=== PATIENT | female | born 1940 | race Caucasian/White ===

== ENCOUNTER 2019-05-28 20:40 | Inpatient (IN) | payer MEDICARE, OTHER ==
[2019-05-28] MEDS ORDERED: MORPHINE SULFATE 2 MG/ML SYRINGE IVP STA (21:02)
[2019-05-28 21:30] LABS: Basophils % (A) 0 %; Eosinophils # (A) 0.2 k/uL (0-0.7); Eosinophils % (A) 1 %; HGB 14.8 gm/dL (11.4-16.0); Lymphocytes # (A) 1.1 k/uL (1.0-4.8); Lymphocytes % (A) 6 %; MCH 29.8 pg (25.0-35.0); MCHC 32.8 g/dL (31.0-37.0); MCV 91.1 fL (80.0-100.0); Mean Platelet Volume 7.9; Monocytes # (A) 0.7 k/uL (0-1.0); Monocytes % (A) 5 %; Neutrophils # (A) 14.5 k/uL (1.3-7.7); Neutrophils % (A) 87 %; Platelet Count 191 k/uL (150-450); RBC 4.94 m/uL (3.80-5.40); RDW 14.7 % (11.5-15.5); WBC 16.7 k/uL (3.8-10.6)
[2019-05-28 21:34] LABS: ALT 19 U/L (9-52); AST 25 U/L (14-36); African American GFR (CKD) >90 (>60 ml/min/1.73 sqM); Albumin 3.7 g/dL (3.5-5.0); Alkaline Phosphatase 82 U/L (38-126); Anion Gap 11 mmol/L; Blood Urea Nitrogen 15 mg/dL (7-17); Carbon Dioxide 20 mmol/L (22-30); Chloride 106 mmol/L (98-107); Glucose 143 mg/dL (74-99); Potassium 3.6 mmol/L (3.5-5.1); Sodium 137 mmol/L (137-145); Total Bilirubin 1.8 mg/dL (0.2-1.3); Total Protein 6.7 g/dL (6.3-8.2)
[2019-05-28 21:43] LABS: Partial Thromboplastin Time 24.8 sec (22.0-30.0)
--- NOTE | 2019-05-28 22:19 | US ---
EXAM: US Abdomen Limited, Right Upper Quadrant CLINICAL HISTORY: Right upper quadrant pain, history of gallstones TECHNIQUE: Real-time ultrasound of the right upper quadrant with image documentation. COMPARISON: No relevant prior studies available. FINDINGS: Liver: Nodular atrophic heterogeneous liver. No focal lesions. Gallbladder: Distended gallbladder with mildly prominent wall measuring 4 mm. Possible gallbladder sludge. Sonographic Plata sign is positive. No shadowing gallstones. Common bile duct: Prominent common bile duct measures 9 mm. Pancreas: Pancreas not well-seen due to bowel gas. Right kidney: Unremarkable. No stones. No hydronephrosis. IMPRESSION: Distended gallbladder with mildly prominent wall measuring 4 mm. Possible gallbladder sludge. Sonographic Plata sign is positive. Prominent common bile duct measuring up to 9 mm. Nuclear medicine HIDA scan may be considered for further evaluation.
[2019-05-28] MEDS: DILTIAZEM 125 MG in SODIUM CHLORIDE 0.9% 100 ML IV SCH (23:03)
[2019-05-29] MEDS ORDERED: HEPARIN SODIUM,PORCINE 5,000 UNIT/ML 1 ML VIAL IV ONE (00:19)
[2019-05-29] MEDS ORDERED: HEPARIN SODIUM,PORCINE 5,000 UNIT/ML 1 ML VIAL IV PRN (00:19)
--- NOTE | 2019-05-29 00:19 | ED ---
General Adult HPI - General Chief complaint: Chest Pain Stated complaint: Afib Time Seen by Provider: 05/28/19 20:50 Source: patient, EMS Mode of arrival: EMS Limitations: no limitations - History of Present Illness Initial comments: The patient is an 79-year-old female who presents to the emergency department as a transfer from [facility]. The history is obtained from the transferring physician as well as the patient. He reported that the patient has been in bed for the past 2 days. She reports that she started feeling generally weak with a right upper quadrant abdominal pain 2 days ago. She was unable to get up out of bed and take her medications. Her son did come to check on her and she was found covered in her own urine. EMS was called and brought the patient into the [place] ED. Patient has a history of A. fib and she was found to have a rapid ventricular rate in the 170s. She was also mildly hypotensive. She is supposed to be on Eliquis and metoprolol for her A. fib however has not taken her medications in 2 days. The patient was found to have a leukocytosis of 15,000. She was positive for urinary tract infection. She had an elevated troponin unremarkable at 0.7. They also performed a CT of her chest abdomen pelvis which demonstrated possible cholecystitis. They gave her dose of Rocephin and transferred her for higher level of care. The patient reports a similar history. She used to complaint of a 3 out of 10 right upper quadrant abdominal pain. She reports a history of billiary duct dilation by [facility] several years ago. Admits to associated nausea without vomiting. Denies any changes in her bowel or bladder habits. Denies any chest pain or shortness of breath. There are no other alleviating, precipitating or modifying factors - Related Data Home Medications Medication Instructions Recorded Confirmed Apixaban [Eliquis] 5 mg PO BID 05/28/19 05/28/19 Atorvastatin [Lipitor] 20 mg PO DAILY 05/28/19 05/28/19 Esomeprazole Magnesium [NexIUM] 40 mg PO DAILY 05/28/19 05/28/19 Metoprolol Succinate [Toprol XL] 25 mg PO DAILY 05/28/19 05/28/19 Ranitidine HCl [Zantac] 300 mg PO HS 05/28/19 05/28/19 Allergies Allergy/AdvReac Type Severity Reaction Status Date / Time No Known Allergies Allergy Unverified 05/28/19 21:15 Review of Systems ROS Statement: Those systems with pertinent positive or pertinent negative responses have been documented in the HPI. ROS Other: All systems not noted in ROS Statement are negative. Past Medical History Past Medical History: Atrial Fibrillation, Coronary Artery Disease (CAD), Cancer, COPD, Myocardial Infarction ([place]), Pneumonia Additional Past Medical History / Comment(s): basal cell cancer History of Any Multi-Drug Resistant Organisms: None Reported Past Surgical History: Adenoidectomy, Appendectomy, Heart Catheterization With Stent, Hernia Repair, Hysterectomy, Tonsillectomy Additional Past Surgical History / Comment(s): gall stones removed with biliary stent placement. Past Psychological History: No Psychological Hx Reported Smoking Status: Former smoker Past Alcohol Use History: None Reported Past Drug Use History: None Reported - Past Family History Father Additional Family Medical History / Comment(s): brain tumor Mother Family Medical History: Pneumonia Additional Family Medical History / Comment(s): alzheimers General Exam Limitations: no limitations General appearance: alert, in no apparent distress Head exam: Present: atraumatic, normocephalic Eye exam: Present: normal appearance, PERRL, EOMI ENT exam: Present: mucous membranes dry, TM's normal bilaterally, normal external ear exam Neck exam: Present: normal inspection. Absent: tenderness, meningismus, lymphadenopathy, thyromegaly Respiratory exam: Present: normal lung sounds bilaterally. Absent: wheezes, rales, rhonchi, stridor, accessory muscle use Cardiovascular Exam: Present: tachycardia, irregular rhythm, normal heart sounds GI/Abdominal exam: Present: soft, tenderness (RUQ). Absent: distended, guarding, rebound, rigid, pulsatile mass Extremities exam: Present: normal inspection, full ROM, normal capillary refill. Absent: pedal edema Back exam: Present: normal inspection, full ROM. Absent: tenderness Neurological exam: Present: alert, oriented X3, CN II-XII intact Psychiatric exam: Present: normal affect Skin exam: Present: warm, dry, intact Course Vital Signs 05/28/19 05/28/19 05/29/19 20:44 22:31 01:12 Temperature 99.5 F Pulse Rate 115 H 133 H 106 H Pulse Rate [ Occupational Health Manager ] Respiratory 18 16 16 Rate Blood Pressure 122/94 114/87 107/59 Blood Pressure [Left Arm Supine] O2 Sat by Pulse 96 96 95 Oximetry 05/29/19 02:28 Temperature 98.3 F Pulse Rate Pulse Rate [ 115 H Occupational Health Manager ] Respiratory 18 Rate Blood Pressure Blood Pressure 127/73 [Left Arm Supine] O2 Sat by Pulse 97 Oximetry EKG Findings - EKG Comments: EKG Findings:: EKG demonstrates atrial fibrillation with a rapid ventricular response of 127. QRS 78. QTC 479. There is mild ST depression in leads V2 through V6. Also in lead 2. There are no acute ST segment elevations. Medical Decision Making - Medical Decision Making Upon arrival the patient is placed into room 1. She is hooked up to continuous pulse ox and cardiac monitoring. The patient does arrive on a Cardizem drip. She is continued on the drip at our facility. I did repeat an EKG. Laboratory studies were conducted at our facility. She is sent her for a chest x-ray as well as an ultrasound of her gallbladder. She is given 2 mg of morphine for pain control. Upon return of the results they are remarkable for an elevated troponin of 0.5. The patient also has a leukocytosis. She previously received Rocephin and therefore I do not obtain blood cultures. I did review the ultrasound report which demonstrated possible acute cholecystitis with a thickened gallbladder wall at 4 mm. She also has a dilated common bile duct of 9 mm. I did provide the patient with a dose of Zosyn as I am concerned for possible acute cholecystitis. I also placed the patient on a heparin drip as she has missed her last 2 doses of Eliquis and because of her elevated trop. I do not restart Eliquis as I anticipate the patient may need surgery. She was given a dose of zosyn to cover for possible acute cholecystitis. I did recommend admission to the hospital for which the patient did agree. I did call discuss case with Dr. spann who did accept admission of the patient. I will place GI, surgery and cardiology on consult. The patient was reevaluated and had improvement in her pain. Her heart rate did improve as well as her blood pressure. Abdomen remained soft without peritoneal signs. The patient was then transported to the floor in stable condition - Differential Diagnosis afib with RVR, acute uti, acute cholecystitis, dehydration - Lab Data Result diagrams: 06/03/19 07:14 06/03/19 07:14 Lab Results 05/28/19 05/28/19 05/28/19 Range/Units 21:15 21:15 21:15 WBC 16.7 H (3.8-10.6) k/uL RBC 4.94 (3.80-5.40) m/uL Hgb 14.8 (11.4-16.0) gm/dL Hct 45.0 (34.0-46.0) % MCV 91.1 (80.0-100.0) fL MCH 29.8 (25.0-35.0) pg MCHC 32.8 (31.0-37.0) g/dL RDW 14.7 (11.5-15.5) % Plt Count 191 (150-450) k/uL Neutrophils % 87 % Lymphocytes % 6 % Monocytes % 5 % Eosinophils % 1 % Basophils % 0 % Neutrophils # 14.5 H (1.3-7.7) k/uL Lymphocytes # 1.1 (1.0-4.8) k/uL Monocytes # 0.7 (0-1.0) k/uL Eosinophils # 0.2 (0-0.7) k/uL Basophils # 0.0 (0-0.2) k/uL PT (9.0-12.0) sec INR (<1.2) APTT (22.0-30.0) sec Sodium 137 (137-145) mmol/L Potassium 3.6 (3.5-5.1) mmol/L Chloride 106 (98-107) mmol/L Carbon Dioxide 20 L (22-30) mmol/L Anion Gap 11 mmol/L BUN 15 (7-17) mg/dL Creatinine 0.57 (0.52-1.04) mg/dL Est GFR (CKD-EPI)AfAm >90 (>60 ml/min/1.73 sqM) Est GFR (CKD-EPI)NonAf 87 (>60 ml/min/1.73 sqM) Glucose 143 H (74-99) mg/dL Plasma Lactic Acid Kike 2.0 (0.7-2.0) mmol/L Calcium 9.0 (8.4-10.2) mg/dL Total Bilirubin 1.8 H (0.2-1.3) mg/dL AST 25 (14-36) U/L ALT 19 (9-52) U/L Alkaline Phosphatase 82 (38-126) U/L Troponin I (0.000-0.034) ng/mL Total Protein 6.7 (6.3-8.2) g/dL Albumin 3.7 (3.5-5.0) g/dL 05/28/19 05/28/19 Range/Units 21:15 21:15 WBC (3.8-10.6) k/uL RBC (3.80-5.40) m/uL Hgb (11.4-16.0) gm/dL Hct (34.0-46.0) % MCV (80.0-100.0) fL MCH (25.0-35.0) pg MCHC (31.0-37.0) g/dL RDW (11.5-15.5) % Plt Count (150-450) k/uL Neutrophils % % Lymphocytes % % Monocytes % % Eosinophils % % Basophils % % Neutrophils # (1.3-7.7) k/uL Lymphocytes # (1.0-4.8) k/uL Monocytes # (0-1.0) k/uL Eosinophils # (0-0.7) k/uL Basophils # (0-0.2) k/uL PT 11.0 (9.0-12.0) sec INR 1.0 (<1.2) APTT 24.8 (22.0-30.0) sec Sodium (137-145) mmol/L Potassium (3.5-5.1) mmol/L Chloride (98-107) mmol/L Carbon Dioxide (22-30) mmol/L Anion Gap mmol/L BUN (7-17) mg/dL Creatinine (0.52-1.04) mg/dL Est GFR (CKD-EPI)AfAm (>60 ml/min/1.73 sqM) Est GFR (CKD-EPI)NonAf (>60 ml/min/1.73 sqM) Glucose (74-99) mg/dL Plasma Lactic Acid Kike (0.7-2.0) mmol/L Calcium (8.4-10.2) mg/dL Total Bilirubin (0.2-1.3) mg/dL AST (14-36) U/L ALT (9-52) U/L Alkaline Phosphatase (38-126) U/L Troponin I 0.522 H* (0.000-0.034) ng/mL Total Protein (6.3-8.2) g/dL Albumin (3.5-5.0) g/dL Critical Care Time Critical Care Time: Yes Total Critical Care Time: 35 (mins) Critical Care Time: 35 mins Disposition Clinical Impression: Atrial fibrillation with RVR, Acute urinary tract infection, Acute cholecystitis, NSTEMI (non-ST elevated myocardial infarction) Disposition: ADMITTED IP TO THIS [facility] Condition: Serious Is patient prescribed a controlled substance at d/c from ED?: No Decision to Admit Reason: Admit from EC Decision Date: 05/29/19 Decision Time: 00:19
[2019-05-29] MEDS ORDERED: NALOXONE 0.4 MG/ML 1 ML VIAL IV PRN (00:20)
--- NOTE | 2019-05-29 00:33 | XR ---
EXAM: XR Chest, 2 Views CLINICAL HISTORY: abdominal pain TECHNIQUE: Frontal and lateral views of the chest. COMPARISON: CT 05/28/2019 FINDINGS: Lungs: Bilateral pulmonary hyperinflation. No consolidation. Pleural space: Unremarkable. No pneumothorax. Heart: Borderline sized cardiomediastinal silhouette. Mediastinum: See above. Bones/joints: No acute osseous abnormality. Tubes, lines and devices: Telemetry leads overlie the patient. IMPRESSION: No acute cardiopulmonary process.
[2019-05-29] MEDS: HEPARIN SOD,PORK IN 0.45% NACL 25,000 UNIT in 0.45% NACL 1 250ML.BAG IV SCH ×2 (00:56→23:37)
[2019-05-29] MEDS: PIPERACILLIN-TAZOBACTAM 3.375 GM in SODIUM CHLORIDE 0.9% 100 ML IVPB SCH ×4 (01:00→23:30)
[2019-05-29] MEDS: SODIUM CHLORIDE 0.9% 1,000 ML IV SCH ×2 (01:09→14:44)
[2019-05-29 08:00] LABS: Anisocytosis Slight; Basophils % (A) 0 %; Eosinophils # (A) 0.1 k/uL (0-0.7); Eosinophils % (A) 0 %; HCT 41.9 % (34.0-46.0); HGB 13.7 gm/dL (11.4-16.0); Lymphocytes # (A) 1.5 k/uL (1.0-4.8); Lymphocytes % (A) 10 %; MCH 29.6 pg (25.0-35.0); MCHC 32.8 g/dL (31.0-37.0); MCV 90.3 fL (80.0-100.0); Mean Platelet Volume 9.1; Monocytes # (A) 0.9 k/uL (0-1.0); Monocytes % (A) 6 %; Neutrophils # (A) 11.9 k/uL (1.3-7.7); Neutrophils % (A) 82 %; Platelet Count 194 k/uL (150-450); RBC 4.64 m/uL (3.80-5.40); RDW 16.1 % (11.5-15.5); WBC 14.6 k/uL (3.8-10.6)
[2019-05-29 08:05] LABS: ALT 17 U/L (9-52); AST 22 U/L (14-36); African American GFR (CKD) >90 (>60 ml/min/1.73 sqM); Albumin 3.2 g/dL (3.5-5.0); Alkaline Phosphatase 73 U/L (38-126); Anion Gap 9 mmol/L; Blood Urea Nitrogen 18 mg/dL (7-17); Calcium 8.7 mg/dL (8.4-10.2); Carbon Dioxide 22 mmol/L (22-30); Chloride 107 mmol/L (98-107); Glucose 119 mg/dL (74-99); Potassium 3.4 mmol/L (3.5-5.1); Sodium 138 mmol/L (137-145); Total Bilirubin 1.8 mg/dL (0.2-1.3)
--- NOTE | 2019-05-29 09:17 | P.CRDCN ---
History of Present Illness Consult date: 05/29/19 Requesting physician: Carlton E Taina Reason for Consult (text): Afib w/RVR, NSTEMI Chief complaint: RUQ pain, nausea, vomiting History of present illness: This is a pleasant 79-year-old female patient with history of hypertension, hyperlipidemia, prior IA with symptoms of sudden onset diaphoresis, nausea, vomiting and weakness with stenting done in [place], [place] in October 2016, chronic atrial fibrillation, anticoagulated on Eliquis, has not followed with a Health Care Recruiter since around June 2017, and prior gall stone removal and biliary duct dilation at [facility] in the past. Initially presented to [facility] with a 2 day history of right upper quadrant pain as well as nausea, vomiting and weakness. Since she woke up Saturday night with these symptoms and they were ongoing for 2 days. She had apparently been unable to get out of bed and her son came to check on her and found her covering her own urine. She's been unable to take any of her medications for 2 days. Upon arrival she was found to be in atrial fibrillation with rapid ventricular response with a heart rate of around 170 and was subsequently transferred here. She's been initiated on Cardizem drip as well as heparin drip. She is found to be positive for UTI and has an elevated white blood cell count of 16,000. Computed tomography scan of the abdomen and chest and pelvis showed possible cholecystitis. Ultrasound of the abdomen did show distended gallbladder with mildly prominent wall measuring 4 mm with possible gallbladder sludge and prominent common bile duct measuring up to 9 mm. Surgery is in place in consult. Patient was incidentally found to have elevated troponins of 0.74, 0.52 and 0.36. Heart rate is better controlled in the 90s. Upon examination, patient is resting comfortable in bed. She has no current complaints of nausea or vomiting but continues to have significant right upper quadrant discomfort. She verbalizes that the symptoms she had this admission are quite different compared to what she experienced with her IA in 2017 as she did not have diaphoresis and her weakness was not sudden in onset. She's had no recent complaints of chest discomfort, diaphoresis, shortness of breath, orthopnea, PND, dizziness, lightheadedness or syncope. Past Medical History Past Medical History: Atrial Fibrillation, Coronary Artery Disease (CAD), Cancer, COPD, Myocardial Infarction ([place]), Pneumonia Additional Past Medical History / Comment(s): basal cell cancer Last Myocardial Infarction Date:: 10/2016 History of Any Multi-Drug Resistant Organisms: None Reported Past Surgical History: Adenoidectomy, Appendectomy, Heart Catheterization With Stent, Hernia Repair, Hysterectomy, Tonsillectomy Additional Past Surgical History / Comment(s): gall stones removed with biliary stent placement. 2 heart stents Date of Last Stent Placement:: 10/2016 Smoking Status: Former smoker - Past Family History Father Additional Family Medical History / Comment(s): brain tumor Mother Family Medical History: Pneumonia Additional Family Medical History / Comment(s): alzheimers Medications and Allergies Home Medications Medication Instructions Recorded Confirmed Type Apixaban [Eliquis] 5 mg PO BID 05/28/19 05/28/19 History Atorvastatin [Lipitor] 20 mg PO DAILY 05/28/19 05/28/19 History Esomeprazole Magnesium [NexIUM] 40 mg PO DAILY 05/28/19 05/28/19 History Metoprolol Succinate [Toprol XL] 25 mg PO DAILY 05/28/19 05/28/19 History Ranitidine HCl [Zantac] 300 mg PO HS 05/28/19 05/28/19 History Allergies Allergy/AdvReac Type Severity Reaction Status Date / Time No Known Allergies Allergy Unverified 05/28/19 21:15 Physical Exam Vitals: Vital Signs Temp Pulse Pulse Resp BP BP Pulse Ox 05/29/19 04:00 98.2 F 107 H 18 110/58 95 05/29/19 03:28 115 H 18 05/29/19 02:28 98.3 F 115 H 18 127/73 97 05/29/19 01:12 106 H 16 107/59 95 05/28/19 22:31 133 H 16 114/87 96 05/28/19 20:44 99.5 F 115 H 18 122/94 96 Intake and Output 05/28/19 05/29/19 05/29/19 22:59 06:59 14:59 Intake Total 400 Balance 400 Intake: Intake, IV Titration 400 Amount Piperacillin-Tazobactam 3 100 .375 gm In Sodium Chloride 0.9% 100 ml @ 25 mls/hr IVPB Q8H [facility] Rx#: [id number] Sodium Chloride 0.9% 1, 300 000 ml @ 75 mls/hr IV . [id number] [facility] Rx#:[id number] Other: Voiding Method Bedpan # Voids 2 Weight 62.596 kg 66 kg PHYSICAL EXAMINATION: HEENT: Head is atraumatic, normocephalic. Pupils equal, round. Neck is supple. There is no elevated jugular venous pressure. No carotid bruit. HEART EXAMINATION: Heart sounds irregularly irregular, S1 and S2 with a soft systolic murmur. CHEST EXAMINATION: Lungs are clear to auscultation and precussion. No chest wall tenderness is noted on palpation or with deep breathing. ABDOMEN: Soft, significant right upper quadrant tenderness noted. Bowel sounds are heard. No organomegaly noted. EXTREMITIES: 2+ peripheral pulses with no evidence of peripheral edema and no calf tenderness noted. NEUROLOGIC patient is awake, alert and oriented x3. . Results 05/30/19 05:42 05/30/19 05:42 Cardiac Enzymes 05/28/19 05/28/19 05/29/19 Range/Units 21:15 21:15 04:02 AST 25 (14-36) U/L Troponin I 0.522 H* 0.360 H* (0.000-0.034) ng/mL 05/29/19 Range/Units 06:58 AST 22 (14-36) U/L Troponin I (0.000-0.034) ng/mL Coagulation 05/28/19 05/29/19 Range/Units 21:15 06:58 PT 11.0 (9.0-12.0) sec APTT 24.8 39.7 H (22.0-30.0) sec CBC 05/28/19 05/29/19 Range/Units 21:15 06:58 WBC 16.7 H 14.6 H (3.8-10.6) k/uL RBC 4.94 4.64 (3.80-5.40) m/uL Hgb 14.8 13.7 (11.4-16.0) gm/dL Hct 45.0 41.9 (34.0-46.0) % Plt Count 191 194 (150-450) k/uL Comprehensive Metabolic Panel 05/28/19 05/29/19 Range/Units 21:15 06:58 Sodium 137 138 (137-145) mmol/L Potassium 3.6 3.4 L (3.5-5.1) mmol/L Chloride 106 107 (98-107) mmol/L Carbon Dioxide 20 L 22 (22-30) mmol/L BUN 15 18 H (7-17) mg/dL Creatinine 0.57 0.68 (0.52-1.04) mg/dL Glucose 143 H 119 H (74-99) mg/dL Calcium 9.0 8.7 (8.4-10.2) mg/dL AST 25 22 (14-36) U/L ALT 19 17 (9-52) U/L Alkaline Phosphatase 82 73 (38-126) U/L Total Protein 6.7 6.0 L (6.3-8.2) g/dL Albumin 3.7 3.2 L (3.5-5.0) g/dL Current Medications Generic Name Dose Route Start Last Admin Trade Name Freq PRN Reason Stop Dose Admin Atorvastatin Calcium 20 mg 05/29/19 09:00 Lipitor PO DAILY SHADI Heparin Sodium (Porcine) 0 unit 05/29/19 00:19 Heparin IV PER PROTOCOL PRN Low PTT Protocol Diltiazem HCl 125 mg/ Sodium 125 mls @ 5 mls/hr 05/28/19 23:00 05/28/19 23:03 Chloride IV 5 mg/hr .Q24H SHADI 5 mls/hr Administration 5 MG/HR Piperacillin Sod/Tazobactam 100 mls @ 25 mls/hr 05/28/19 23:00 05/29/19 07:35 Sod 3.375 gm/ Sodium Chloride IVPB 25 mls/hr Q8H SHADI Administration Heparin Sodium/Sodium Chloride 250 mls @ 7.512 mls/hr 05/29/19 00:30 05/29/19 00:56 25,000 unit/ Sodium Chloride IV 12 units/kg/hr .Q24H SHADI 7.512 mls/hr Administration Protocol 12 UNITS/KG/HR Sodium Chloride 1,000 mls @ 75 mls/hr 05/29/19 00:30 05/29/19 01:09 Saline 0.9% IV 75 mls/hr .[id number] SHADI Administration Metoprolol Tartrate 5 mg 05/29/19 09:00 Lopressor IVP Q12HR SHADI Naloxone HCl 0.2 mg 05/29/19 00:20 Narcan IV Q2M PRN Opioid Reversal Pantoprazole Sodium 40 mg 05/29/19 09:00 Protonix PO DAILY SHADI Intake and Output 05/28/19 05/29/19 05/29/19 22:59 06:59 14:59 Intake Total 400 Balance 400 Intake: Intake, IV Titration 400 Amount Piperacillin-Tazobactam 3 100 .375 gm In Sodium Chloride 0.9% 100 ml @ 25 mls/hr IVPB Q8H [facility] Rx#: [id number] Sodium Chloride 0.9% 1, 300 000 ml @ 75 mls/hr IV . [id number] [facility] Rx#:[id number] Other: Voiding Method Bedpan # Voids 2 Weight 62.596 kg 66 kg 05/29/19 06:58 05/29/19 06:58 EKG Interpretations (text) Atrial fibrillation with rapid ventricular response Assessment and Plan Assessment: #1 right upper quadrant pain with nausea and vomiting with evidence of cholecystitis #2 elevated troponin, cannot definitively rule out obstructive CAD at this time, could be a non-ST elevation IA versus type II IA due to oxygen supply demand mismatch #3 history of CAD with prior IA and stenting in October 2016 #4 persistent atrial fibrillation, currently with rapid ventricular response after not taking medications for several days #5 urinary tract infection #6 hypertension #7 hyperlipidemia Plan: From chief of harbor patrol perspective, we will continue IV Cardizem and heparin. We will add IV beta eduardo as patient is nothing by mouth. We will obtain a 2-D echo with Doppler to assess LV systolic function and look for wall motion abnormalities. We will request records from [facility]. Await surgical consultation. Further recommendations to follow. CASH MANAGEMENT CLERK note has been reviewed, I agree with a documented findings and plan of care. Patient was seen and examined.
[2019-05-29] MEDS: ATORVASTATIN 20 MG TAB PO SCH (09:44)
[2019-05-29] MEDS: PANTOPRAZOLE 40 MG TABLET PO SCH (09:44)
[2019-05-29] MEDS: METOPROLOL TARTRATE 5 MG/5 ML VIAL IVP SCH ×2 (09:44→19:56)
--- NOTE | 2019-05-29 12:07 | P.GSCN ---
<Katlyn Cordova - Last Filed: 05/29/19 11:58> History of Present Illness Consult date: 05/29/19 Reason for Consult: cholecystitis Requesting physician: Mary Kay German History of present illness: CHIEF COMPLAINT: cholecystitis HISTORY OF PRESENT ILLNESS: 79 year old female who was transferred to [facility] from [facility] secondary to afib with RVR and cholecystitis. Patient reports over the past two years she has been very weak and not feeling well. She is prescribed Eliquis and Toprol for Afib which she has not been taking for the past few days due to nausea. She was found to be in afib with RVR. Troponins were also found to be elevated. Cardiology has been consulted. She is currently on a heparin drip. She reports history of biliary stent placement and gallstone extraction last year at [facility] in [place]. She states they mentioned a cholecystectomy also at that time but due to her age and medical conditions, it was not advised. She reports nausea this morning. Denies emesis. She reports pain to right lower quadrant, right upper quadrant, and epigastric region. PAST MEDICAL HISTORY: See list. PAST SURGICAL HISTORY: See list. SOCIAL HISTORY: No illicit drug use. REVIEW OF SYSTEMS: CONSTITUTIONAL: Denies fever or chills. HEENT: Denies blurred vision, vision changes, or eye pain. Denies hemoptysis CARDIOVASCULAR: Denies chest pain or pressure. RESPIRATORY: No shortness of breath. GASTROINTESTINAL: Refer to HPI for pertinent findings HEMATOLOGIC: Denies bleeding disorders. GENITOURINARY: Denies any blood in urine. SKIN: Denies pruitis. Denies rash. PHYSICAL EXAM: VITAL SIGNS: Reviewed. GENERAL: Well-developed in no acute distress. HEENT: No sclera icterus. Extraocular movements grossly intact. Moist buccal mucosa. Head is atraumatic, normocephalic. ABDOMEN: Soft. Nondistended. Tenderness with palpation to epigastric region, right upper and lower quadrants. Positive bowel sounds. NEUROLOGIC: Alert and oriented. Cranial nerves II through XII grossly intact. LABORATORY DATA: WBC on admission 16.7. Repeat 14.6. Troponin 0.522, 0.360 Total bilirubin 1.8. AST 22. ALT 17. IMAGIN. CT abdomen and pelvis performed at outside facility with evidence of acute cholecystitis 2. Gallbladder ultrasound: distended gallbladder with mildly prominent wall measuring 4 mm. Possible gallbladder sludge. Sonographic Plata sign is positive. No shadowing gallstones. Prominent common bile duct measuring 9 mm. ASSESSMENT: 1. Abdominal pain with nausea x 2 days 2. Acute cholecystitis 3. Leukocytosis 4. A. fib with RVR 5. Elevated troponins PLAN: 1. NPO until evaluated by GI service. If no plans from GI standpoint, may initiate clear liquid diet 2. Hold Eliquis. Continue heparin drip 3. Continue antibiotics. Monitor WBC 4. Cardiology following. Echo pending 5. Possible surgical intervention once medically stable. Nurse practitioner note has been reviewed by physician. Signing provider agrees with the documented findings, assessment, and plan of care. Past Medical History Past Medical History: Atrial Fibrillation, Coronary Artery Disease (CAD), Cancer, COPD, Myocardial Infarction ([place]), Pneumonia Additional Past Medical History / Comment(s): basal cell cancer Last Myocardial Infarction Date:: 10/2016 History of Any Multi-Drug Resistant Organisms: None Reported Past Surgical History: Adenoidectomy, Appendectomy, Heart Catheterization With Stent, Hernia Repair, Hysterectomy, Tonsillectomy Additional Past Surgical History / Comment(s): gall stones removed with biliary stent placement. 2 heart stents Date of Last Stent Placement:: 10/2016 Smoking Status: Former smoker - Past Family History Father Additional Family Medical History / Comment(s): brain tumor Mother Family Medical History: Pneumonia Additional Family Medical History / Comment(s): alzheimers Medications and Allergies Home Medications Medication Instructions Recorded Confirmed Type Apixaban [Eliquis] 5 mg PO BID 05/28/19 05/28/19 History Atorvastatin [Lipitor] 20 mg PO DAILY 05/28/19 05/28/19 History Esomeprazole Magnesium [NexIUM] 40 mg PO DAILY 05/28/19 05/28/19 History Metoprolol Succinate [Toprol XL] 25 mg PO DAILY 05/28/19 05/28/19 History Ranitidine HCl [Zantac] 300 mg PO HS 05/28/19 05/28/19 History Allergies Allergy/AdvReac Type Severity Reaction Status Date / Time No Known Allergies Allergy Unverified 05/28/19 21:15 Surgical - Exam Vital Signs Temp Pulse Resp BP Pulse Ox 99.5 F 115 H 18 122/94 96 05/28/19 20:44 05/28/19 20:44 05/28/19 20:44 05/28/19 20:44 05/28/19 20:44 Results - Labs 05/29/19 06:58 05/29/19 06:58 Abnormal Lab Results - Last 24 Hours (Table) 05/28/19 05/28/19 05/28/19 Range/Units 21:15 21:15 21:15 WBC 16.7 H (3.8-10.6) k/uL RDW (11.5-15.5) % Neutrophils # 14.5 H (1.3-7.7) k/uL APTT (22.0-30.0) sec Potassium (3.5-5.1) mmol/L Carbon Dioxide 20 L (22-30) mmol/L BUN (7-17) mg/dL Glucose 143 H (74-99) mg/dL Total Bilirubin 1.8 H (0.2-1.3) mg/dL Troponin I 0.522 H* (0.000-0.034) ng/mL Total Protein (6.3-8.2) g/dL Albumin (3.5-5.0) g/dL 05/29/19 05/29/19 05/29/19 Range/Units 04:02 06:58 06:58 WBC 14.6 H (3.8-10.6) k/uL RDW 16.1 H (11.5-15.5) % Neutrophils # 11.9 H (1.3-7.7) k/uL APTT 39.7 H (22.0-30.0) sec Potassium (3.5-5.1) mmol/L Carbon Dioxide (22-30) mmol/L BUN (7-17) mg/dL Glucose (74-99) mg/dL Total Bilirubin (0.2-1.3) mg/dL Troponin I 0.360 H* (0.000-0.034) ng/mL Total Protein (6.3-8.2) g/dL Albumin (3.5-5.0) g/dL 05/29/19 Range/Units 06:58 WBC (3.8-10.6) k/uL RDW (11.5-15.5) % Neutrophils # (1.3-7.7) k/uL APTT (22.0-30.0) sec Potassium 3.4 L (3.5-5.1) mmol/L Carbon Dioxide (22-30) mmol/L BUN 18 H (7-17) mg/dL Glucose 119 H (74-99) mg/dL Total Bilirubin 1.8 H (0.2-1.3) mg/dL Troponin I (0.000-0.034) ng/mL Total Protein 6.0 L (6.3-8.2) g/dL Albumin 3.2 L (3.5-5.0) g/dL Diabetes panel 05/28/19 05/29/19 Range/Units 21:15 06:58 Sodium 137 138 (137-145) mmol/L Potassium 3.6 3.4 L (3.5-5.1) mmol/L Chloride 106 107 (98-107) mmol/L Carbon Dioxide 20 L 22 (22-30) mmol/L BUN 15 18 H (7-17) mg/dL Creatinine 0.57 0.68 (0.52-1.04) mg/dL Glucose 143 H 119 H (74-99) mg/dL Calcium 9.0 8.7 (8.4-10.2) mg/dL AST 25 22 (14-36) U/L ALT 19 17 (9-52) U/L Alkaline Phosphatase 82 73 (38-126) U/L Total Protein 6.7 6.0 L (6.3-8.2) g/dL Albumin 3.7 3.2 L (3.5-5.0) g/dL Calcium panel 05/28/19 05/29/19 Range/Units 21:15 06:58 Calcium 9.0 8.7 (8.4-10.2) mg/dL Albumin 3.7 3.2 L (3.5-5.0) g/dL Pituitary panel 05/28/19 05/29/19 Range/Units 21:15 06:58 Sodium 137 138 (137-145) mmol/L Potassium 3.6 3.4 L (3.5-5.1) mmol/L Chloride 106 107 (98-107) mmol/L Carbon Dioxide 20 L 22 (22-30) mmol/L BUN 15 18 H (7-17) mg/dL Creatinine 0.57 0.68 (0.52-1.04) mg/dL Glucose 143 H 119 H (74-99) mg/dL Calcium 9.0 8.7 (8.4-10.2) mg/dL Adrenal panel 05/28/19 05/29/19 Range/Units 21:15 06:58 Sodium 137 138 (137-145) mmol/L Potassium 3.6 3.4 L (3.5-5.1) mmol/L Chloride 106 107 (98-107) mmol/L Carbon Dioxide 20 L 22 (22-30) mmol/L BUN 15 18 H (7-17) mg/dL Creatinine 0.57 0.68 (0.52-1.04) mg/dL Glucose 143 H 119 H (74-99) mg/dL Calcium 9.0 8.7 (8.4-10.2) mg/dL Total Bilirubin 1.8 H 1.8 H (0.2-1.3) mg/dL AST 25 22 (14-36) U/L ALT 19 17 (9-52) U/L Alkaline Phosphatase 82 73 (38-126) U/L Total Protein 6.7 6.0 L (6.3-8.2) g/dL Albumin 3.7 3.2 L (3.5-5.0) g/dL <Elias Fernandez - Last Filed: 05/29/19 17:39> History of Present Illness History of present illness: As above. Patient presents with right-sided pain. Outside CAT scan reviewed. Some fluid around the liver and gallbladder. Air suspected within the gallbladder. This may be related to previous sphincterotomy however emphy sematous cholecystitis not excluded. Pain is both right upper quadrant and right lower quadrant. She is actually fairly comfortable right now. T-max 99.5. White blood cell count elevated. Bilirubin slightly elevated. Do not suspect choledocholithiasis currently. Appreciated GI evaluation. Options reviewed with the patient in detail. We'll proceed with laparoscopic, possible open cholecystectomy tomorrow. Await cardiac clearance. Risks of bleeding, infection, bile leak, bile duct injury, retained common bile duct stone, trocar injury, conversion to an open procedure, hernia, anesthesia related complications were reviewed. The patient understands and wishes to proceed. Surgical - Exam Vital Signs Temp Pulse Resp BP Pulse Ox 99.5 F 115 H 18 122/94 96 08/22/19 20:44 05/28/19 20:44 05/28/19 20:44 05/28/19 20:44 05/28/19 20:44 Results - Labs 05/29/19 06:58 05/29/19 06:58 Abnormal Lab Results - Last 24 Hours (Table) 05/28/19 05/28/19 05/28/19 Range/Units 21:15 21:15 21:15 WBC 16.7 H (3.8-10.6) k/uL RDW (11.5-15.5) % Neutrophils # 14.5 H (1.3-7.7) k/uL APTT (22.0-30.0) sec Potassium (3.5-5.1) mmol/L Carbon Dioxide 20 L (22-30) mmol/L BUN (7-17) mg/dL Glucose 143 H (74-99) mg/dL Total Bilirubin 1.8 H (0.2-1.3) mg/dL Troponin I 0.522 H* (0.000-0.034) ng/mL Total Protein (6.3-8.2) g/dL Albumin (3.5-5.0) g/dL 05/29/19 05/29/19 05/29/19 Range/Units 04:02 06:58 06:58 WBC 14.6 H (3.8-10.6) k/uL RDW 16.1 H (11.5-15.5) % Neutrophils # 11.9 H (1.3-7.7) k/uL APTT 39.7 H (22.0-30.0) sec Potassium (3.5-5.1) mmol/L Carbon Dioxide (22-30) mmol/L BUN (7-17) mg/dL Glucose (74-99) mg/dL Total Bilirubin (0.2-1.3) mg/dL Troponin I 0.360 H* (0.000-0.034) ng/mL Total Protein (6.3-8.2) g/dL Albumin (3.5-5.0) g/dL 05/29/19 05/29/19 05/29/19 Range/Units 06:58 10:59 15:00 WBC (3.8-10.6) k/uL RDW (11.5-15.5) % Neutrophils # (1.3-7.7) k/uL APTT 40.3 H (22.0-30.0) sec Potassium 3.4 L (3.5-5.1) mmol/L Carbon Dioxide (22-30) mmol/L BUN 18 H (7-17) mg/dL Glucose 119 H (74-99) mg/dL Total Bilirubin 1.8 H (0.2-1.3) mg/dL Troponin I 0.216 H* (0.000-0.034) ng/mL Total Protein 6.0 L (6.3-8.2) g/dL Albumin 3.2 L (3.5-5.0) g/dL Diabetes panel 05/28/19 05/29/19 Range/Units 21:15 06:58 Sodium 137 138 (137-145) mmol/L Potassium 3.6 3.4 L (3.5-5.1) mmol/L Chloride 106 107 (98-107) mmol/L Carbon Dioxide 20 L 22 (22-30) mmol/L BUN 15 18 H (7-17) mg/dL Creatinine 0.57 0.68 (0.52-1.04) mg/dL Glucose 143 H 119 H (74-99) mg/dL Calcium 9.0 8.7 (8.4-10.2) mg/dL AST 25 22 (14-36) U/L ALT 19 17 (9-52) U/L Alkaline Phosphatase 82 73 (38-126) U/L Total Protein 6.7 6.0 L (6.3-8.2) g/dL Albumin 3.7 3.2 L (3.5-5.0) g/dL Calcium panel 05/28/19 05/29/19 Range/Units 21:15 06:58 Calcium 9.0 8.7 (8.4-10.2) mg/dL Albumin 3.7 3.2 L (3.5-5.0) g/dL Pituitary panel 05/28/19 05/29/19 Range/Units 21:15 06:58 Sodium 137 138 (137-145) mmol/L Potassium 3.6 3.4 L (3.5-5.1) mmol/L Chloride 106 107 (98-107) mmol/L Carbon Dioxide 20 L 22 (22-30) mmol/L BUN 15 18 H (7-17) mg/dL Creatinine 0.57 0.68 (0.52-1.04) mg/dL Glucose 143 H 119 H (74-99) mg/dL Calcium 9.0 8.7 (8.4-10.2) mg/dL Adrenal panel 05/28/19 05/29/19 Range/Units 21:15 06:58 Sodium 137 138 (137-145) mmol/L Potassium 3.6 3.4 L (3.5-5.1) mmol/L Chloride 106 107 (98-107) mmol/L Carbon Dioxide 20 L 22 (22-30) mmol/L BUN 15 18 H (7-17) mg/dL Creatinine 0.57 0.68 (0.52-1.04) mg/dL Glucose 143 H 119 H (74-99) mg/dL Calcium 9.0 8.7 (8.4-10.2) mg/dL Total Bilirubin 1.8 H 1.8 H (0.2-1.3) mg/dL AST 25 22 (14-36) U/L ALT 19 17 (9-52) U/L Alkaline Phosphatase 82 73 (38-126) U/L Total Protein 6.7 6.0 L (6.3-8.2) g/dL Albumin 3.7 3.2 L (3.5-5.0) g/dL
--- NOTE | 2019-05-29 13:12 | ECHOF ---
Referral Reason:AF w/RVR, NSTEMI MEASUREMENTS -------- HEIGHT: 170.2 cm WEIGHT: 65.8 kg BP: RVIDd: 2.1 cm (< 3.3) IVSd: 1.3 cm (0.6 - 1.1) LVIDd: 3.5 cm (3.9 - 5.3) LVPWd: 1.3 cm (0.6 - 1.1) IVSs: 1.5 cm LVIDs: 2.9 cm LVPWs: 1.7 cm LA Diam: 5.3 cm (2.7 - 3.8) LAESV Index (A-L): 47.51 ml/m Ao Diam: 2.9 cm (2.0 - 3.7) AV Cusp: 1.2 cm (1.5 - 2.6) LA Diam: 5.1 cm (2.7 - 3.8) MV EXCURSION: 14.924 mm (> 18.000) MV EF SLOPE: 82 mm/s (70 - 150) EPSS: 0.2 cm MV E Bartolo: 0.83 m/s MV DecT: 161 ms MV A Bartolo: 0.02 m/s MV E/A Ratio: 43.24 RAP: 5.00 mmHg RVSP: 27.65 mmHg FINDINGS -------- Atrial fibrillation. This was a technically adequate study. The left ventricular size is normal. There is mild concentric left ventricular hypertrophy. Overa ll left ventricular systolic function is low-normal with, an EF between 50 - 55 %. The right ventricle is normal in size. The left atrium is markedly dilated. LA is severely dilated >40 ml/m2 The right atrial size is normal. There is mild aortic valve sclerosis. There is no evidence of aortic regurgitation. Mild mitral annular calcification present. Himywqqf-co-isityk mitral regurgitation is present. Mild tricuspid regurgitation present. There is no evidence of pulmonary hypertension. The right v entricular systolic pressure, as measured by Doppler, is 27.65mmHg. There is no pulmonic regurgitation present. The aortic root size is normal. There is no pericardial effusion. CONCLUSIONS -------- 1. Atrial fibrillation. 2. This was a technically adequate study. 3. The left ventricular size is normal. 4. There is mild concentric left ventricular hypertrophy. 5. Overall left ventricular systolic function is low-normal with, an EF between 50 - 55 %. 6. The right ventricle is normal in size. 7. The left atrium is markedly dilated. 8. LA is severely dilated >40 ml/m2 9. The right atrial size is normal. 10. There is mild aortic valve sclerosis. 11. Mild mitral annular calcification present. 12. Ebjczahd-we-beedsf mitral regurgitation is present. 13. Mild tricuspid regurgitation present. 14. There is no evidence of pulmonary hypertension. 15. The right ventricular systolic pressure, as measured by Doppler, is 27.65mmHg. 16. There is no pulmonic regurgitation present. 17. The aortic root size is normal. 18. There is no pericardial effusion. [employer] MANAGER: Isabel Macias RDCS
[2019-05-29] MEDS: MORPHINE SULFATE 2 MG/ML SYRINGE IVP PRN ×2 (14:02→23:27)
[2019-05-29] MEDS ORDERED: Potassium Replacement Protocol 1 EACH MISC MISCELLANE PRN (15:13)
--- NOTE | 2019-05-29 15:28 | P.HPIM ---
History of Present Illness H&P Date: 05/29/19 Chief Complaint: Nausea and vomiting Patient is a 79-year-old female with known history of coronary artery disease with stent placement, chronic atrial fibrillation, COPD, history of gallstones removed with biliary stent placement at [facility] and history of basilar cell carcinoma was initially presented to [facility] with complaints of nausea and vomiting and abdominal discomfort 2 days prior to admission. Abdominal pain is 3 out of 10. She was unable to get out of bed and take her medications. Her son did come to check on her and she was found covered in her own urine. EMS was called and brought the patient into the [place] ED. Patient has a history of A. fib and she was found to have a rapid ventricular rate in the 170s. She was also mildly hypotensive. She is supposed to be on eliquis and metoprolol for her A. fib however has not taken her medications in [address] of abdomen pelvis due to right upper quadrant discomfort and was found have possible acute cholecystitis. Patient had leukocytosis of 15,000 and bilirubin 1.8. Patient was given a dose of ceftriaxone and transferred to [facility] for further evaluation. Patient was also having troponin elevation up to 0.7. Otherwise patient denied any dysuria or hematuria. No complaints of chest pain or shortness of breath. No headache or dizziness or lightheadedness. Chest x-ray showed no acute cardio pulmonary process. EKG showed atrial fibrillation with a rapid ventricular rate Troponin 0.522 and 0.216 2-D echocardiogram showed normal ejection fraction. Ultrasound of the abdomen showed distended gallbladder with mildly prominent wa ll measuring 4 mL. Possible gallbladder sludge. Sonographic Plata sign is positive. Prominent common bile duct measuring up to 9mm. HIDA scan may be considered for further evaluation. Bilirubin level is 1.8, potassium 3.4 today. Review of Systems Constitutional: Patient denies any fever or chills . No generalized weakness or weight loss. Abdomen: Patient does have nausea vomiting and abdominal discomfort Cardiovascular: Patient denies any chest pain or short of breath no palpitations. Respiratory: patient denied any cough is from production. No shortness of breath Neurologic: Patient denied any numbness or tingling headache. Musculoskeletal: Patient denies any complaints of joint swelling or deformity. Skin: Negative Psychiatric: Negative Endocrine: No heat or cold intolerance. No recent weight gain. Genitourinary: No dysuria or hematuria. All other 14 point ROS negative except the above Past Medical History Past Medical History: Atrial Fibrillation, Coronary Artery Disease (CAD), Cancer, COPD, Myocardial Infarction ([place]), Pneumonia Additional Past Medical History / Comment(s): basal cell cancer Last Myocardial Infarction Date:: 10/2016 History of Any Multi-Drug Resistant Organisms: None Reported Past Surgical History: Adenoidectomy, Appendectomy, Heart Catheterization With Stent, Hernia Repair, Hysterectomy, Tonsillectomy Additional Past Surgical History / Comment(s): gall stones removed with biliary stent placement. 2 heart stents Date of Last Stent Placement:: 10/2016 Smoking Status: Former smoker - Past Family History Father Additional Family Medical History / Comment(s): brain tumor Mother Family Medical History: Pneumonia Additional Family Medical History / Comment(s): alzheimers Medications and Allergies Home Medications Medication Instructions Recorded Confirmed Type Apixaban [Eliquis] 5 mg PO BID 05/28/19 05/28/19 History Atorvastatin [Lipitor] 20 mg PO DAILY 05/28/19 05/28/19 History Esomeprazole Magnesium [NexIUM] 40 mg PO DAILY 05/28/19 05/28/19 History Metoprolol Succinate [Toprol XL] 25 mg PO DAILY 05/28/19 05/28/19 History Ranitidine HCl [Zantac] 300 mg PO HS 05/28/19 05/28/19 History Allergies Allergy/AdvReac Type Severity Reaction Status Date / Time No Known Allergies Allergy Unverified 05/28/19 21:15 Physical Exam Vitals: Vital Signs Temp Pulse Pulse Resp BP BP Pulse Ox 05/29/19 08:30 97.9 F 102 H 17 123/82 100 05/29/19 04:00 98.2 F 107 H 18 110/58 95 05/29/19 03:28 115 H 18 05/29/19 02:28 98.3 F 115 H 18 127/73 97 05/29/19 01:12 106 H 16 107/59 95 05/28/19 22:31 133 H 16 114/87 96 05/28/19 20:44 99.5 F 115 H 18 122/94 96 Intake and Output 05/28/19 05/29/19 05/29/19 22:59 06:59 14:59 Intake Total 400 64.979 Output Total 200 Balance 400 -135.021 Intake: Intake, IV Titration 400 64.979 Amount Heparin Sod,Pork in 0.45% 64.979 NaCl 25,000 unit In 0.45 % NaCl 1 250ml.bag @ 12 UNITS/KG/HR 7.512 mls/hr IV .Q24H SHADI Rx#: [id number] Piperacillin-Tazobactam 3 100 .375 gm In Sodium Chloride 0.9% 100 ml @ 25 mls/hr IVPB Q8H SHADI Rx#: [id number] Sodium Chloride 0.9% 1, 300 000 ml @ 75 mls/hr IV . [id number] SHADI Rx#:[id number] Output: Urine 200 Other: Voiding Method Bedpan # Voids 2 Weight 62.596 kg 66 kg PHYSICAL EXAMINATION: Patient is lying in the bed comfortably, no acute distress, awake alert and oriented.. HEENT: Normocephalic. Neck is supple. Pupils reactive. Nostrils clear. Oral cavity is moist. Ears reveal no drainage. Neck reveals no JVD, carotid bruits, or thyromegaly. CHEST EXAMINATION: Trachea is central. Symmetrical expansion. Lung thomas clear to auscultation and percussion. CARDIAC: Normal S1, S2 with no gallops. No murmurs . Irregularly irregular rhythm. ABDOMEN: Soft. Mild right upper quadrant tenderness. No guarding no rigidity Bowel sounds normal. No organomegaly. No abdominal bruits. Extremities: reveal no edema. No clubbing or cyanosis Neurologically awake, alert, oriented x3 with well-coordinated movements. No focal deficits noted Skin: No rash or skin lesions. Psychiatric: Coperative. Nonsuicidal Musculoskeletal: No joint swelling or deformity. Normal range of motion. Results CBC & Chem 7: 05/29/19 06:58 05/29/19 06:58 Labs: Abnormal Lab Results - Last 24 Hours (Table) 05/28/19 05/28/19 05/28/19 Range/Units 21:15 21:15 21:15 WBC 16.7 H (3.8-10.6) k/uL RDW (11.5-15.5) % Neutrophils # 14.5 H (1.3-7.7) k/uL APTT (22.0-30.0) sec Potassium (3.5-5.1) mmol/L Carbon Dioxide 20 L (22-30) mmol/L BUN (7-17) mg/dL Glucose 143 H (74-99) mg/dL Total Bilirubin 1.8 H (0.2-1.3) mg/dL Troponin I 0.522 H* (0.000-0.034) ng/mL Total Protein (6.3-8.2) g/dL Albumin (3.5-5.0) g/dL 05/29/19 05/29/19 05/29/19 Range/Units 04:02 06:58 06:58 WBC 14.6 H (3.8-10.6) k/uL RDW 16.1 H (11.5-15.5) % Neutrophils # 11.9 H (1.3-7.7) k/uL APTT 39.7 H (22.0-30.0) sec Potassium (3.5-5.1) mmol/L Carbon Dioxide (22-30) mmol/L BUN (7-17) mg/dL Glucose (74-99) mg/dL Total Bilirubin (0.2-1.3) mg/dL Troponin I 0.360 H* (0.000-0.034) ng/mL Total Protein (6.3-8.2) g/dL Albumin (3.5-5.0) g/dL 05/29/19 05/29/19 Range/Units 06:58 10:59 WBC (3.8-10.6) k/uL RDW (11.5-15.5) % Neutrophils # (1.3-7.7) k/uL APTT (22.0-30.0) sec Potassium 3.4 L (3.5-5.1) mmol/L Carbon Dioxide (22-30) mmol/L BUN 18 H (7-17) mg/dL Glucose 119 H (74-99) mg/dL Total Bilirubin 1.8 H (0.2-1.3) mg/dL Troponin I 0.216 H* (0.000-0.034) ng/mL Total Protein 6.0 L (6.3-8.2) g/dL Albumin 3.2 L (3.5-5.0) g/dL Thrombosis Risk Factor Assmnt - DVT/VTE Prophylaxis DVT/VTE Prophylaxis: Pharmacologic Prophylaxis ordered - Choose All That Apply Any of the Below Risk Factors Present?: No Other Risk Factors: No Each Risk Factor Represents 3 Points: Age 75 years or older Other congenital or acquired thrombophilia - If yes, enter type in comment: No Thrombosis Risk Factor Assessment Total Risk Factor Score: 3 Thrombosis Risk Factor Assessment Level: Very Low Risk Assessment and Plan Assessment: Acute cholecystitis. Right upper quadrant discomfort along with nausea and vomiting secondary to ab ove Persistent atrial fibrillation with rapid regular rate. Elevated troponin level likely due to demand mismatch. Non-ST elevated [place] cannot be excluded. Acute urinary tract infection Sepsis secondary to UTI and acute cholecystitis. Coronary artery disease with history of stent placement History of biliary stent placement at [facility] due to gallstones. COPD stable History of [place] Previous history of smoking Hypertension Hyperlipidemia DVT prophylaxis patient is already on heparin drip Plan: Patient will be continued on Cardizem drip for rate control. Continue with heparin drip and Eliquis is on hold due to possible surgery. Patient was started back on metoprolol. Continue with antibiotics in the form of Zosyn. Follow-up urine culture reports. General surgery is planning for cholecystectomy once medically stable. Cardiology is on board. Further recommendations based on the clinical course. Prognosis is guarded. Time with Patient: Greater than 30
--- NOTE | 2019-05-29 16:20 | P.CONS ---
History of Present Illness - Reason for Consult Consult date: 05/29/19 Elevated bilirubin Requesting physician: Lul Izquierdo - Chief Complaint Abdominal pain - History of Present Illness 79-year-old female with a medical history significant for coronary artery disease, atrial fibrillation, COPD as well as choledocholithiasis status post ERCP with sphincterotomy and stent placement for which she subsequently underwent removal who presented to [facility] with complaints of nausea and vomiting with associated abdominal discomfort. The patient reports that the symptoms began Saturday night. She reports multiple episodes of nonbloody vomitus. Decreased oral intake secondary to her symptoms. CT of the abdomen and pelvis was performed on presentation to the hospital with findings of acute cholecystitis. Patient was started on IV antibiotic therapy and transferred to [facility] for further evaluation. Ultrasound performed after transfer was significant for a distended gallbladder with a mildly prominent wall, positive sonographic Plata sign and a 9 mm common bile duct. Bilirubin has been mildly elevated but stable at 1.8. Other liver enzymes within normal limits. Review of Systems REVIEW OF SYSTEMS: CONSTITUTIONAL: Denies any fevers, chills, weight change or fatigue. CARDIOVASCULAR: Denies any chest pain, palpitations high or low blood pressures, but was noted to be tachycardic. RESPIRATORY: Denies any shortness of breath, hemoptysis or cough. GENITOURINARY: No dysuria or hematuria. MUSCULOSKELETAL: No weakness reported. SKIN: Denies any new rashes or lesions, jaundice or pallor. PSYCHIATRIC: Denies any depression or anxiety. NEUROLOGY: Denies headache, denies any new focal deficits. EARS/NOSE/THROAT: No recent hearing change, congestion, nasal discharge or sore throat. EYES: No pain in eyes, discharge or change in vision. GASTROINTESTINAL: As per HPI. Past Medical History Past Medical History: Atrial Fibrillation, Coronary Artery Disease (CAD), Cancer, COPD, Myocardial Infarction (AR), Pneumonia Additional Past Medical History / Comment(s): basal cell cancer Last Myocardial Infarction Date:: 10/2016 History of Any Multi-Drug Resistant Organisms: None Reported Past Surgical History: Adenoidectomy, Appendectomy, Heart Catheterization With Stent, Hernia Repair, Hysterectomy, Tonsillectomy Additional Past Surgical History / Comment(s): gall stones removed with biliary stent placement. 2 heart stents Date of Last Stent Placement:: 10/2016 Smoking Status: Former smoker - Past Family History Father Additional Family Medical History / Comment(s): brain tumor Mother Family Medical History: Pneumonia Additional Family Medical History / Comment(s): alzheimers Medications and Allergies Home Medications Medication Instructions Recorded Confirmed Type Apixaban [Eliquis] 5 mg PO BID 05/28/19 05/28/19 History Atorvastatin [Lipitor] 20 mg PO DAILY 05/28/19 05/28/19 History Esomeprazole Magnesium [NexIUM] 40 mg PO DAILY 05/28/19 05/28/19 History Metoprolol Succinate [Toprol XL] 25 mg PO DAILY 05/28/19 05/28/19 History Ranitidine HCl [Zantac] 300 mg PO HS 05/28/19 05/28/19 History Allergies Allergy/AdvReac Type Severity Reaction Status Date / Time No Known Allergies Allergy Unverified 05/28/19 21:15 Physical Exam Vitals: Vital Signs Temp Pulse Pulse Resp BP BP Pulse Ox 05/29/19 13:11 98.5 F 90 18 137/65 05/29/19 12:30 94 18 118/80 95 05/29/19 08:30 97.9 F 102 H 17 123/82 100 05/29/19 04:00 98.2 F 107 H 18 110/58 95 05/29/19 03:28 115 H 18 05/29/19 02:28 98.3 F 115 H 18 127/73 97 05/29/19 01:12 106 H 16 107/59 95 05/28/19 22:31 133 H 16 114/87 96 05/28/19 20:44 99.5 F 115 H 18 122/94 96 Intake and Output 05/29/19 05/29/19 05/29/19 06:59 14:59 22:59 Intake Total 400 64.979 Output Total 200 Balance 400 -135.021 Intake: Intake, IV Titration 400 64.979 Amount Heparin Sod,Pork in 0.45% 64.979 NaCl 25,000 unit In 0.45 % NaCl 1 250ml.bag @ 12 UNITS/KG/HR 7.512 mls/hr IV .Q24H [facility] Rx#: [id number] Piperacillin-Tazobactam 3 100 .375 gm In Sodium Chloride 0.9% 100 ml @ 25 mls/hr IVPB Q8H [facility] Rx#: [id number] Sodium Chloride 0.9% 1, 300 000 ml @ 75 mls/hr IV . [id number] [facility] Rx#:[id number] Output: Urine 200 Other: Voiding Method Bedpan # Voids 2 Weight 66 kg On physical examination, patient appears comfortable in no apparent distress. HEAD: Normocephalic, atraumatic. EYES: No scleral icterus. No conjunctival injection. MOUTH: No lesions, tongue midline. NECK: Trachea midline, no gross abnormalities. CHEST: No respiratory distress. HEART: S1-S2, irregularly irregular. ABDOMEN: Soft, obese. Bowel sounds are positive. No organomegaly. No rigidity positive right upper quadrant guarding and positive Plata sign. EXTREMITIES: No pedal edema. SKIN: No rashes, no jaundice. NEUROLOGIC: Alert and oriented x3. No focal deficits. Results CBC & Chem 7: 05/29/19 06:58 05/29/19 06:58 Labs: Abnormal Lab Results - Last 24 Hours (Table) 05/28/19 05/28/19 05/28/19 Range/Units 21:15 21:15 21:15 WBC 16.7 H (3.8-10.6) k/uL RDW (11.5-15.5) % Neutrophils # 14.5 H (1.3-7.7) k/uL APTT (22.0-30.0) sec Potassium (3.5-5.1) mmol/L Carbon Dioxide 20 L (22-30) mmol/L BUN (7-17) mg/dL Glucose 143 H (74-99) mg/dL Total Bilirubin 1.8 H (0.2-1.3) mg/dL Troponin I 0.522 H* (0.000-0.034) ng/mL Total Protein (6.3-8.2) g/dL Albumin (3.5-5.0) g/dL 05/29/19 05/29/19 05/29/19 Range/Units 04:02 06:58 06:58 WBC 14.6 H (3.8-10.6) k/uL RDW 16.1 H (11.5-15.5) % Neutrophils # 11.9 H (1.3-7.7) k/uL APTT 39.7 H (22.0-30.0) sec Potassium (3.5-5.1) mmol/L Carbon Dioxide (22-30) mmol/L BUN (7-17) mg/dL Glucose (74-99) mg/dL Total Bilirubin (0.2-1.3) mg/dL Troponin I 0.360 H* (0.000-0.034) ng/mL Total Protein (6.3-8.2) g/dL Albumin (3.5-5.0) g/dL 05/29/19 05/29/19 05/29/19 Range/Units 06:58 10:59 15:00 WBC (3.8-10.6) k/uL RDW (11.5-15.5) % Neutrophils # (1.3-7.7) k/uL APTT 40.3 H (22.0-30.0) sec Potassium 3.4 L (3.5-5.1) mmol/L Carbon Dioxide (22-30) mmol/L BUN 18 H (7-17) mg/dL Glucose 119 H (74-99) mg/dL Total Bilirubin 1.8 H (0.2-1.3) mg/dL Troponin I 0.216 H* (0.000-0.034) ng/mL Total Protein 6.0 L (6.3-8.2) g/dL Albumin 3.2 L (3.5-5.0) g/dL US - abdomen: report reviewed (Ultrasound abdomen significant for prominent bowel bladder with sludge noted, 9 mm CBD and positive sonographic Plata sign) Assessment and Plan (1) Acute cholecystitis Narrative/Plan: 79-year-old female with a medical history significant for multiple comorbidities including prior history of choledocholithiasis treated at [facility] with ERCP with sphincterotomy and stent placement and subsequent removal who presented to outside hospital with complaints of abdominal pain nausea and vomiting. Imaging with computed tomography scan of the abdomen at that location and ultrasound at [facility] was suggestive of acute cholecystitis for which the patient is currently receiving treatment. Patient has had mild elevation of bilirubin stable at 1.8. Elevation likely secondary to underlying acute cholecystitis. Surgical service is following. Current Visit: Yes Status: Acute Code(s): K81.0 - ACUTE CHOLECYSTITIS SNOMED Code(s): 84818988 (2) Total bilirubin, elevated Current Visit: Yes Status: Acute Code(s): R17 - UNSPECIFIED JAUNDICE SNOMED Code(s): 269187136118141 Plan: Supportive care Okay for liquid diet Continue to hold anticoagulation therapy Surgical recommendations appreciated Continue to monitor CMP, CBC Continue antibiotic therapy Mild stable elevation of bilirubin felt likely secondary to underlying chol ecystitis with no plans for ERCP at this time. If patient has further spike and bilirubin are clinical deterioration would recommend transfer to tertiary center for ERCP otherwise continue current medical management with discussion regarding cholecystectomy per the surgical service. Thank you for allowing us to participate in the care of the patient, the gastroenterology service will stand by, please call us back with any questions or concerns
[2019-05-29] MEDS ORDERED: NON-FORMULARY DRUG (Ranitidine Hcl [Zantac] 300 MG) PO SCH (21:00)
[2019-05-29] MEDS: DILTIAZEM 125 MG in SODIUM CHLORIDE 0.9% 100 ML IV SCH (23:33)
[2019-05-30] MEDS: SODIUM CHLORIDE 0.9% 1,000 ML IV SCH ×2 (04:26→17:57)
[2019-05-30 06:27] LABS: Basophils % (A) 0 %; Eosinophils # (A) 0.1 k/uL (0-0.7); Eosinophils % (A) 0 %; HGB 12.6 gm/dL (11.4-16.0); Lymphocytes # (A) 1.2 k/uL (1.0-4.8); Lymphocytes % (A) 11 %; MCH 29.5 pg (25.0-35.0); MCHC 32.3 g/dL (31.0-37.0); MCV 91.3 fL (80.0-100.0); Mean Platelet Volume 8.8; Monocytes # (A) 0.6 k/uL (0-1.0); Monocytes % (A) 5 %; Neutrophils # (A) 8.8 k/uL (1.3-7.7); Neutrophils % (A) 83 %; Platelet Count 174 k/uL (150-450); RBC 4.27 m/uL (3.80-5.40); RDW 15.3 % (11.5-15.5); WBC 10.7 k/uL (3.8-10.6)
[2019-05-30] MEDS: PIPERACILLIN-TAZOBACTAM 3.375 GM in SODIUM CHLORIDE 0.9% 100 ML IVPB SCH ×3 (06:36→23:31)
[2019-05-30 06:46] LABS: ALT 18 U/L (9-52); AST 19 U/L (14-36); African American GFR (CKD) >90 (>60 ml/min/1.73 sqM); Albumin 2.8 g/dL (3.5-5.0); Alkaline Phosphatase 71 U/L (38-126); Anion Gap 10 mmol/L; Blood Urea Nitrogen 17 mg/dL (7-17); Calcium 8.2 mg/dL (8.4-10.2); Carbon Dioxide 20 mmol/L (22-30); Chloride 106 mmol/L (98-107); Glucose 100 mg/dL (74-99); Potassium 3.4 mmol/L (3.5-5.1); Sodium 136 mmol/L (137-145); Total Bilirubin 1.6 mg/dL (0.2-1.3); Total Protein 5.3 g/dL (6.3-8.2)
[2019-05-30] MEDS: ATORVASTATIN 20 MG TAB PO SCH (08:07)
[2019-05-30] MEDS: METOPROLOL TARTRATE 5 MG/5 ML VIAL IVP SCH ×2 (08:08→19:55)
[2019-05-30] MEDS: PANTOPRAZOLE 40 MG TABLET PO SCH (08:08)
--- NOTE | 2019-05-30 09:37 | P.PN ---
Subjective Progress Note Date: 05/30/19 Principal diagnosis: Acute cholecystitis Patient seen by stars coordinator morning. She has been cleared although moderate risk for surgical intervention. Still having right-sided pain. Bilirubin today 1.6. White blood cell count 10.7. Objective - Vital Signs Vital signs: Vital Signs Temp 99.1 F 05/30/19 08:05 Pulse 110 H 05/30/19 08:05 Resp 16 05/30/19 08:05 BP 116/59 05/30/19 08:05 Pulse Ox 95 05/30/19 08:05 Intake & Output 05/29/19 05/30/19 05/30/19 18:59 06:59 18:59 Intake Total 141.656 188.6 Output Total 200 600 Balance -58.344 -411.4 Weight 69 kg Intake: Intake, IV Titration 141.656 188.6 Amount Diltiazem 125 mg In 122.5 Sodium Chloride 0.9% 100 ml @ 5 MG/HR 5 mls/hr IV .Q24H [facility] Rx#:[id number] Heparin Sod,Pork in 0.45% 141.656 66.1 NaCl 25,000 unit In 0.45 % NaCl 1 250ml.bag @ 12 UNITS/KG/HR 7.512 mls/hr IV .Q24H [facility] Rx#: [id number] Output: Urine 200 600 Other: Voiding Method Bedpan # Voids 1 - Exam Abdomen: Soft, nondistended, right-sided mid and upper quadrant tenderness - Labs CBC & Chem 7: 05/30/19 05:42 05/30/19 05:42 Labs: Abnormal Lab Results - Last 24 Hours (Table) 05/29/19 05/29/19 05/30/19 Range/Units 10:59 15:00 00:16 WBC (3.8-10.6) k/uL Neutrophils # (1.3-7.7) k/uL APTT 40.3 H 51.1 H (22.0-30.0) sec Sodium (137-145) mmol/L Potassium (3.5-5.1) mmol/L Carbon Dioxide (22-30) mmol/L Glucose (74-99) mg/dL Calcium (8.4-10.2) mg/dL Total Bilirubin (0.2-1.3) mg/dL Troponin I 0.216 H* (0.000-0.034) ng/mL Total Protein (6.3-8.2) g/dL Albumin (3.5-5.0) g/dL 05/30/19 05/30/19 Range/Units 05:42 05:42 WBC 10.7 H (3.8-10.6) k/uL Neutrophils # 8.8 H (1.3-7.7) k/uL APTT (22.0-30.0) sec Sodium 136 L (137-145) mmol/L Potassium 3.4 L (3.5-5.1) mmol/L Carbon Dioxide 20 L (22-30) mmol/L Glucose 100 H (74-99) mg/dL Calcium 8.2 L (8.4-10.2) mg/dL Total Bilirubin 1.6 H (0.2-1.3) mg/dL Troponin I (0.000-0.034) ng/mL Total Protein 5.3 L (6.3-8.2) g/dL Albumin 2.8 L (3.5-5.0) g/dL Assessment and Plan (1) Acute cholecystitis Narrative/Plan: Patient's son was present at the bedside. We discussed the clinical scenario in detail. We'll proceed with cholecystectomy today. Risks again reviewed. Current Visit: Yes Status: Acute Code(s): K81.0 - ACUTE CHOLECYSTITIS SNOMED Code(s): 01945922
[2019-05-30] MEDS: POTASSIUM CHLORIDE 10 MEQ in WATER FOR INJECTION 1 100ML.BAG IVPB SCH ×4 (09:46→17:57)
[2019-05-30] MEDS ORDERED: ONDANSETRON 4 MG/2 ML VIAL ONE (11:43)
[2019-05-30] MEDS ORDERED: LACTATED RINGERS 1,000 ML IV ONE ×2 (11:43→12:50)
[2019-05-30] MEDS ORDERED: PROPOFOL 10 MG/ML 20 ML VIAL IV ONE (11:43)
[2019-05-30] MEDS ORDERED: SUCCINYLCHOLINE CHLORIDE 100 MG/5 ML SYR IV ONE (11:43)
[2019-05-30] MEDS ORDERED: BUPIVACAIN-EPI 0.25%-1:200,000 30 ML VIAL SQ ONE (11:43)
[2019-05-30] MEDS ORDERED: ROCURONIUM BROMIDE 10 MG/ML 10 ML VIAL IV ONE (11:43)
[2019-05-30] MEDS ORDERED: ePHEDrine SULFATE/0.9% NACL/PF 50 MG/5 ML SYRINGE IV ONE (11:43)
[2019-05-30] MEDS ORDERED: LABETALOL 5 MG/ML VIAL MDV ONE (11:43)
[2019-05-30] MEDS ORDERED: NEOSTIGMINE 1 MG/ML 10 ML VIAL ONE (11:43)
[2019-05-30] MEDS ORDERED: fentaNYL (PF) 50 MCG/ML 2 ML AMP ONE (11:43)
[2019-05-30] MEDS ORDERED: LIDOCAINE 1% INJ 10MG/ML (20 ML MDV) ONE (11:43)
[2019-05-30] MEDS ORDERED: GLYCOPYRROLATE 0.2 MG/ML 2 ML VIAL ONE (11:43)
[2019-05-30] MEDS ORDERED: ceFAZolin 1,000 MG VIAL ONE (11:43)
--- NOTE | 2019-05-30 11:45 | P.PN ---
Progress Note - Text Progress Note Date: 05/30/19 Patient is DNR, we discussed risks of surgery, discussed that the DNR status would not apply in the Operating room. She and her son understand. DNR is rescinded for the operative and post operative period. Jacqueline vu MD.
--- NOTE | 2019-05-30 13:06 | P.PN ---
Subjective Progress Note Date: 05/30/19 This is a pleasant 79-year-old female patient with history of hypertension, hyperlipidemia, prior WY with symptoms of sudden onset diaphoresis, nausea, vomiting and weakness with stenting done in [place], [place] in October 2016, chronic atrial fibrillation, anticoagulated on Eliquis, has not followed with a Mitering Machine Operator since around June 2017, and prior gall stone removal and biliary duct dilation at [facility] in the past. Initially presented to [facility] with a 2 day history of right upper quadrant pain as well as nausea, vomiting and weakness. Since she woke up Saturday night with these symptoms and they were ongoing for 2 days. She had apparently been unable to get out of bed and her son came to check on her and found her covering her own urine. She's been unable to take any of her medications for 2 days. Upon arrival she was found to be in atrial fibrillation with rapid ventricular response with a heart rate of around 170 and was subsequently transferred here. She's been initiated on Cardizem drip as well as heparin drip. She is found to be positive for UTI and has an elevated white blood cell count of 16,000. Computed tomography scan of the abdomen and chest and pelvis showed possible cholecystitis. Ultrasound of the abdomen did show distended gallbladder with mildly prominent wall measuring 4 mm with possible gallbladder sludge and prominent common bile duct measuring up to 9 mm. Surgery is in place in consult. Patient was incidentally found to have elevated troponins of 0.74, 0.52 and 0.36. Heart rate is better controlled in the 90s. Upon examination, patient is resting comfortable in bed. She has no current complaints of nausea or vomiting but continues to have significant right upper quadrant discomfort. She verbalizes that the symptoms she had this admission are quite different compared to what she experienced with her WY in 2017 as she did not have diaphoresis and her weakness was not sudden in onset. She's had no recent complaints of chest discomfort, diaphoresis, shortness of breath, orthopnea, PND, dizziness, lightheadedness or syncope. 05/30/19 she was seen and examined this morning. She is anticipating laparoscopic cholecystectomy by Dr. Fernandez today. She is feeling somewhat better but continues to have abdominal discomfort she's had no further nausea or vomiting and no further complaints of weakness. Echocardiogram with Doppler done yesterday showed low normal LV systolic function with ejection fraction of 50-55% with no evidence of segmental wall motion abnormalities, mild aortic valve sclerosis, moderate to severe mitral regurgitation and mild tricuspid regurgitation. Objective - Vital Signs Vital signs: Vital Signs Temp 99.1 F 05/30/19 08:05 Pulse 110 H 05/30/19 08:05 Resp 16 05/30/19 08:05 BP 116/59 05/30/19 08:05 Pulse Ox 95 05/30/19 08:05 Intake & Output 05/29/19 05/30/19 05/30/19 18:59 06:59 18:59 Intake Total 141.656 188.6 Output Total 200 600 500 Balance -58.344 -411.4 -500 Weight 69 kg Intake: Intake, IV Titration 141.656 188.6 Amount Diltiazem 125 mg In 122.5 Sodium Chloride 0.9% 100 ml @ 5 MG/HR 5 mls/hr IV .Q24H [facility] Rx#:[id number] Heparin Sod,Pork in 0.45% 141.656 66.1 NaCl 25,000 unit In 0.45 % NaCl 1 250ml.bag @ 12 UNITS/KG/HR 7.512 mls/hr IV .Q24H [facility] Rx#: [id number] Output: Urine 200 600 500 Other: Voiding Method Bedpan # Voids 1 2 - Exam PHYSICAL EXAMINATION: HEENT: Head is atraumatic, normocephalic. Pupils equal, round. Neck is supple. There is no elevated jugular venous pressure. No carotid bruit. HEART EXAMINATION: Heart sounds irregularly irregular, S1 and S2 with a systolic murmur. CHEST EXAMINATION: Lungs are clear to auscultation. No chest wall tenderness is noted on palpation or with deep breathing. ABDOMEN: Soft, significant right upper quadrant tenderness noted. Bowel sounds are heard. No organomegaly noted. EXTREMITIES: 2+ peripheral pulses with no evidence of peripheral edema and no c erma tenderness noted. NEUROLOGIC patient is awake, alert and oriented x3. - Labs CBC & Chem 7: 05/30/19 05:42 05/30/19 05:42 Labs: Abnormal Lab Results - Last 24 Hours (Table) 05/29/19 05/30/19 05/30/19 Range/Units 15:00 00:16 05:42 WBC 10.7 H (3.8-10.6) k/uL Neutrophils # 8.8 H (1.3-7.7) k/uL APTT 40.3 H 51.1 H (22.0-30.0) sec Sodium (137-145) mmol/L Potassium (3.5-5.1) mmol/L Carbon Dioxide (22-30) mmol/L Glucose (74-99) mg/dL Calcium (8.4-10.2) mg/dL Total Bilirubin (0.2-1.3) mg/dL Total Protein (6.3-8.2) g/dL Albumin (3.5-5.0) g/dL 05/30/19 Range/Units 05:42 WBC (3.8-10.6) k/uL Neutrophils # (1.3-7.7) k/uL APTT (22.0-30.0) sec Sodium 136 L (137-145) mmol/L Potassium 3.4 L (3.5-5.1) mmol/L Carbon Dioxide 20 L (22-30) mmol/L Glucose 100 H (74-99) mg/dL Calcium 8.2 L (8.4-10.2) mg/dL Total Bilirubin 1.6 H (0.2-1.3) mg/dL Total Protein 5.3 L (6.3-8.2) g/dL Albumin 2.8 L (3.5-5.0) g/dL Assessment and Plan Assessment: #1 right upper quadrant pain with nausea and vomiting with evidence of cholecystitis, anticipating laparoscopic cholecystectomy today #2 elevated troponin, cannot definitively rule out obstructive CAD at this time, could be a non-ST elevation WY versus type II WY due to oxygen supply demand mismatch, echocardiogram shows low-normal LV systolic function with ejection fraction of 50-55% with no evidence of segmental wall motion abnormalities #3 history of CAD with prior WY and stenting in October 2016 #4 persistent atrial fibrillation, currently with rapid ventricular response after not taking medications for several days #5 urinary tract infection #6 hypertension #7 hyperlipidemia Plan: From practical nursing instructor perspective, there is no absolute contraindication to patient undergoing proposed surgery today. Continue Cardizem and beta eduardo perioperatively. Resume heparin or oral anticoagulation postoperatively depending on patient's ability to take oral medications. We will continue to follow the patient perioperatively and provide further recommendations marco a bentley MERCHANDISE FLOW TEAM MEMBER note has been reviewed, I agree with a documented findings and plan of care. Patient was seen and examined.
--- NOTE | 2019-05-30 14:16 | P.OP ---
Date of Procedure: 05/30/19 Procedure(s) Performed: PREOPERATIVE DIAGNOSIS: Acute cholecystitis POSTOPERATIVE DIAGNOSIS: Gangrenous cholecystitis, incisional hernia PROCEDURE: Attempted laparoscopic cholecystectomy, open cholecystectomy, incisional hernia repair SURGEON: Jim EBL: 50 mL ANESTHESIA: Gen. COMPLICATIONS: None OPERATIVE PROCEDURE: The patient was brought and placed on the operating room table in the supine position. The patient was placed under general anesthesia at that time. The abdomen was prepped and draped in the usual sterile fashion. A small vertical infraumbilical incision was made. The fascia was grasped with the Navi forceps. The fascia was retracted anteriorly. The Veress needle was advanced into the peritoneal cavity. The saline drop test was normal. Insufflation took place up to 15 mmHg. A 5 mm optical trocar was advanced and the peritoneal cavity. 2 additional 5 mm trochars were placed in the right upper quadrant under direct visualization. A 12 mm trocar was advanced into the epigastric incision site through a fascial defect from a previous surgery with residual incisional hernia. The patient's gallbladder was markedly distended and inflamed. A small opening was created in the fundus. Clear fluid consistent with hydrops was evacuated. The gallbladder was then able to be retracted superiorly and laterally. Blunt dissection ensued at the infundibulum. At this point it was clear that the infundibulum and proximal cystic duct had gangrene type changes. I was not convinced that the 2-0 Ethibond stitch that I placed on the cystic duct was going to hold and I decided at that point to convert to an open procedure. A right subcostal incision was made extending into the epigastric incision site. The fascial opening at the incisional hernia was further opened along the length of the incision using electrocautery. The Bookwalter retractor was utilized. The gallbladder was then removed from a top-down manner using electrocautery to divide the junction between the gallbladder and the liver. The patient had a significant edematous reaction between those structures. As we approached the infundibulum the cystic artery and a few small branches of the cystic artery were clipped using the 12 mm clipper. As we approached our previous dissection at the cystic duct the tissue again was noted to be friable and gangrenous. I dissected somewhat closer to the anticipated location of the common bile duct. I was happy with the appearance of the cystic duct at that location and we placed 2-0 silk sutures to ligate the duct at that location. The common bile duct and common hepatic duct were not visualized given the degree of inflammation and edema in the marcos hepatis. The area was irrigated with saline. No bleeding was seen. No biliary drainage was seen. A drain was brought into the field from the lateral 5 mm trocar site. This was later sutured to the skin using a 3-0 nylon stitch. The drain was placed in the gallbladder fossa. Following that the fascia was then reapproximated using 2 separate double-stranded #1 PDS sutures. The incisional hernia was incorporated into the closure and repaired simultaneously. The subcutaneous tissues were closed using 3-0 Vicryl sutures. The skin was closed using dannielle. Sterile dressings were then applied. At the end of this procedure the sponge and needle counts were correct. DISPOSITION: Stable to the recovery room
[2019-05-30] MEDS: HYDROmorphone 1 MG/ML 1 ML SYRINGE IVP PRN ×3 (16:04→23:32)
[2019-05-30] MEDS: DILTIAZEM 125 MG in SODIUM CHLORIDE 0.9% 100 ML IV SCH (21:41)
[2019-05-30] MEDS: ACETAMINOPHEN IV (For NPO) 1,000 MG in EMPTY BAG 1 BAG IVPB SCH (21:41)
[2019-05-31] MEDS: ACETAMINOPHEN IV (For NPO) 1,000 MG in EMPTY BAG 1 BAG IVPB SCH ×3 (03:05→15:51)
[2019-05-31] MEDS: PIPERACILLIN-TAZOBACTAM 3.375 GM in SODIUM CHLORIDE 0.9% 100 ML IVPB SCH ×3 (05:56→22:58)
[2019-05-31 06:58] LABS: ALT 21 U/L (9-52); AST 25 U/L (14-36); African American GFR (CKD) >90 (>60 ml/min/1.73 sqM); Albumin 2.3 g/dL (3.5-5.0); Alkaline Phosphatase 60 U/L (38-126); Anion Gap 9 mmol/L; Blood Urea Nitrogen 13 mg/dL (7-17); Calcium 8.1 mg/dL (8.4-10.2); Carbon Dioxide 20 mmol/L (22-30); Chloride 108 mmol/L (98-107); Glucose 96 mg/dL (74-99); Potassium 3.7 mmol/L (3.5-5.1); Sodium 137 mmol/L (137-145); Total Bilirubin 1.2 mg/dL (0.2-1.3); Total Protein 4.6 g/dL (6.3-8.2)
[2019-05-31] MEDS: SODIUM CHLORIDE 0.9% 1,000 ML IV SCH ×2 (07:22→18:26)
[2019-05-31] MEDS: PANTOPRAZOLE 40 MG TABLET PO SCH (07:59)
[2019-05-31] MEDS: ATORVASTATIN 20 MG TAB PO SCH (07:59)
[2019-05-31] MEDS: METOPROLOL TARTRATE 5 MG/5 ML VIAL IVP SCH ×2 (08:02→20:23)
[2019-05-31] MEDS: HYDROmorphone 1 MG/ML 1 ML SYRINGE IVP PRN ×2 (08:02→18:22)
--- NOTE | 2019-05-31 10:26 | P.PN ---
Subjective Progress Note Date: 05/31/19 Principal diagnosis: Acute cholecystitis Patient doing better today. Her pain is improved. Bilirubin down to 1.2. Remainder of the liver enzymes are normal. TERE drain serosanguineous. Tolerating clears. Objective - Vital Signs Vital signs: Vital Signs Temp 97.7 F 05/31/19 08:00 Pulse 84 05/31/19 08:00 Resp 16 05/31/19 08:00 BP 96/53 05/31/19 08:00 Pulse Ox 97 05/31/19 08:00 Intake & Output 05/30/19 05/31/19 05/31/19 18:59 06:59 18:59 Intake Total 1770 110.667 18 Output Total 750 200 Balance 1020 -89.333 18 Weight 75 kg Intake: IV 1750 Intake, IV Titration 110.667 Amount Diltiazem 125 mg In 110.667 Sodium Chloride 0.9% 100 ml @ 5 MG/HR 5 mls/hr IV .Q24H [facility] Rx#:[id number] Oral 20 18 Output: Urine 700 200 Estimated Blood Loss 50 Other: Voiding Method Bedpan # Voids 2 1 - Exam Abdomen: Soft, nondistended, dressing clean dry - Labs CBC & Chem 7: 05/30/19 05:42 05/31/19 05:42 Labs: Abnormal Lab Results - Last 24 Hours (Table) 05/31/19 Range/Units 05:42 Chloride 108 H (98-107) mmol/L Carbon Dioxide 20 L (22-30) mmol/L Calcium 8.1 L (8.4-10.2) mg/dL Total Protein 4.6 L (6.3-8.2) g/dL Albumin 2.3 L (3.5-5.0) g/dL Assessment and Plan (1) Acute cholecystitis Narrative/Plan: Continue analgesics. Begin IV heparin later today. Advance diet. Current Visit: Yes Status: Acute Code(s): K81.0 - ACUTE CHOLECYSTITIS SNOMED Code(s): 73910767
--- NOTE | 2019-05-31 12:24 | PN ---
PROGRESS NOTE Mrs. Cobb is an 79-year-old female who has a history of coronary artery disease, history of atrial fibrillation, who presented with abdominal discomfort, underwent cholecystectomy yesterday by Dr. Fernandez, and was found to have gangrenous cholecystitis with incisional hernia. Attempted laparoscopic approach was not successful and was switched to open cholecystectomy. She has some abdominal discomfort today, but feels better overall. She denies any chest pain. She denies any dizziness or palpitation. She denies any nausea. She continues to be on IV Cardizem, metoprolol tartrate 5 mg IV q.12 hours. Her anticoagulation remains on hold. She has a TERE drain in place. PHYSICAL EXAMINATION: Blood pressure in the high 90s, low 100s with a heart rate in the 80s. LUNGS: Clear. Heart irregularly irregular S1, S2. No S3. No rub with a systolic murmur. ABDOMEN: Soft. Hypoactive bowel sounds. The drainage is in place. A dressing noted. EXTREMITIES: No edema. LAB DATA: BUN and creatinine of 13 and 0.67, potassium 3.7. IMPRESSION: 1. Status post cholecystectomy with gangrenous gallbladder. 2. Atrial fibrillation, chronic, persistent, rate controlled. 3. History of coronary artery disease, status post stenting of October 2016. 4. Hypertension. 5. Hyperlipidemia. RECOMMENDATION: From the cardiac standpoint, we will continue present therapy. I am hopeful that she can resume oral anticoagulation tomorrow as well as switch her back to her oral beta eduardo. In the meantime, we will continue present therapy and depending on her progress, further recommendations will be made. MMODL / IJN: [id number] /
--- NOTE | 2019-05-31 12:24 | P.PN ---
Subjective Progress Note Date: 05/30/19 Principal diagnosis: Acute cholecystitis Patient is a 79-year-old female with known history of coronary artery disease with stent placement, chronic atrial fibrillation, COPD, history of gallstones removed with biliary stent placement at [facility] and history of basil ar cell carcinoma was initially presented to [facility] with complaints of nausea and vomiting and abdominal discomfort 2 days prior to admission. Abdominal pain is 3 out of 10. She was unable to get out of bed and take her medications. Her son did come to check on her and she was found covered in her own urine. EMS was called and brought the patient into the [place] ED. Patient has a history of A. fib and she was found to have a rapid ventricular rate in the 170s. She was also mildly hypotensive. She is supposed to be on eliquis and metoprolol for her A. fib however has not taken her medications in [address] of abdomen pelvis due to right upper quadrant discomfort and was found have possible acute cholecystitis. Patient had leukocytosis of 15,000 and bilirubin 1.8. Patient was given a dose of ceftriaxone and transferred to [facility] for further evaluation. Patient was also having troponin elevation up to 0.7. Otherwise patient denied any dysuria or hematuria. No complaints of chest pain or shortness of breath. No headache or dizziness or lightheadedness. Chest x-ray showed no acute cardio pulmonary process. EKG showed atrial fibrillation with a rapid ventricular rate Troponin 0.522 and 0.216 2-D echocardiogram showed normal ejection fraction. Ultrasound of the abdomen showed distended gallbladder with mildly prominent w all measuring 4 mL. Possible gallbladder sludge. Sonographic Plata sign is positive. Prominent common bile duct measuring up to 9mm. HIDA scan may be considered for further evaluation. Bilirubin level is 1.8, potassium 3.4 8 2018 Patient underwent cholecystectomy by Dr. Reed corcoran. Currently abdominal discomfort and soreness. No nausea vomiting. No fever no chills. Echocardiogram showed normal ejection fraction at 50-55% with no wall motion abnormalities noted. Mild aortic valve sclerosis. Moderate to severe mitral regurgitation and mild tricuspid regurgitation. No complains of chest pain or shortness of breath. Cardiology is following. Current medications reviewed. Objective - Vital Signs Vital signs: Vital Signs Temp 99.1 F 05/30/19 08:05 Pulse 110 H 05/30/19 08:05 Resp 16 05/30/19 08:05 BP 116/59 05/30/19 08:05 Pulse Ox 95 05/30/19 08:05 Intake & Output 05/29/19 05/30/19 05/30/19 18:59 06:59 18:59 Intake Total 141.656 188.6 Output Total 200 600 500 Balance -58.344 -411.4 -500 Weight 69 kg Intake: Intake, IV Titration 141.656 188.6 Amount Diltiazem 125 mg In 122.5 Sodium Chloride 0.9% 100 ml @ 5 MG/HR 5 mls/hr IV .Q24H [facility] Rx#:[id number] Heparin Sod,Pork in 0.45% 141.656 66.1 NaCl 25,000 unit In 0.45 % NaCl 1 250ml.bag @ 12 UNITS/KG/HR 7.512 mls/hr IV .Q24H [facility] Rx#: [id number] Output: Urine 200 600 500 Other: Voiding Method Bedpan # Voids 1 2 - Exam PHYSICAL EXAMINATION: Patient is lying in the bed comfortably, no acute distress, awake alert and oriented.. HEENT: Normocephalic. Neck is supple. Pupils reactive. Nostrils clear. Oral cavity is moist. Ears reveal no drainage. Neck reveals no JVD, carotid bruits, or thyromegaly. CHEST EXAMINATION: Trachea is central. Symmetrical expansion. Lung thomas clear to auscultation and percussion. CARDIAC: Normal S1, S2 with no gallops. No murmurs . Irregularly irregular rhythm. ABDOMEN: Soft. Mild right upper quadrant tenderness. No guarding no rigidity Bowel sounds normal. No organomegaly. No abdominal bruits. Extremities: reveal no edema. No clubbing or cyanosis Neurologically awake, alert, oriented x3 with well-coordinated movements. No focal deficits noted Skin: No rash or skin lesions. Psychiatric: Coperative. Nonsuicidal Musculoskeletal: No joint swelling or deformity. Normal range of motion. - Labs CBC & Chem 7: 05/30/19 05:42 05/31/19 05:42 Labs: Abnormal Lab Results - Last 24 Hours (Table) 05/29/19 05/30/19 05/30/19 Range/Units 15:00 00:16 05:42 WBC 10.7 H (3.8-10.6) k/uL Neutrophils # 8.8 H (1.3-7.7) k/uL APTT 40.3 H 51.1 H (22.0-30.0) sec Sodium (137-145) mmol/L Potassium (3.5-5.1) mmol/L Carbon Dioxide (22-30) mmol/L Glucose (74-99) mg/dL Calcium (8.4-10.2) mg/dL Total Bilirubin (0.2-1.3) mg/dL Total Protein (6.3-8.2) g/dL Albumin (3.5-5.0) g/dL 05/30/19 Range/Units 05:42 WBC (3.8-10.6) k/uL Neutrophils # (1.3-7.7) k/uL APTT (22.0-30.0) sec Sodium 136 L (137-145) mmol/L Potassium 3.4 L (3.5-5.1) mmol/L Carbon Dioxide 20 L (22-30) mmol/L Glucose 100 H (74-99) mg/dL Calcium 8.2 L (8.4-10.2) mg/dL Total Bilirubin 1.6 H (0.2-1.3) mg/dL Total Protein 5.3 L (6.3-8.2) g/dL Albumin 2.8 L (3.5-5.0) g/dL Assessment and Plan Assessment: Acute cholecystitis. Status post open cholecystectomy. Right upper quadrant discomfort along with nausea and vomiting secondary to above Persistent atrial fibrillation with rapid regular rate. Elevated troponin level likely due to demand mismatch. Non-ST elevated CT cannot be excluded. Acute urinary tract infection Sepsis secondary to UTI and acute cholecystitis. Coronary artery disease with history of stent placement History of biliary stent placement at [facility] due to gallstones. COPD stable History of CT Previous history of smoking Hypertension Hyperlipidemia DVT prophylaxis patient is already on heparin drip Plan: Patient will be continued on Cardizem drip for rate control. Continue with heparin drip and Eliquis is on hold due to surgery. will start back on Eliquis once patient is tolerating oral diet. Patient was started back on metoprolol. On Cardizem drip. Continue with antibiotics in the form of Zosyn. Follow-up urine culture reports. Patient is status post cholecystectomy. Further recommendations based on the clinical course. Prognosis is guarded. Time with Patient: Greater than 30
[2019-05-31] MEDS: APIXABAN 5 MG TAB PO SCH (20:23)
[2019-05-31] MEDS: DILTIAZEM 125 MG in SODIUM CHLORIDE 0.9% 100 ML IV SCH (22:58)
[2019-06-01] MEDS: HYDROmorphone 1 MG/ML 1 ML SYRINGE IVP PRN ×2 (01:11→07:56)
[2019-06-01] MEDS: HYDROcodone/APAP 5-325MG 1 EACH TAB PO PRN ×3 (05:33→19:40)
[2019-06-01] MEDS: PIPERACILLIN-TAZOBACTAM 3.375 GM in SODIUM CHLORIDE 0.9% 100 ML IVPB SCH ×3 (06:00→23:08)
[2019-06-01 07:42] LABS: Basophils % (A) 0 %; Eosinophils # (A) 0.2 k/uL (0-0.7); Eosinophils % (A) 3 %; HCT 35.5 % (34.0-46.0); HGB 11.4 gm/dL (11.4-16.0); Lymphocytes # (A) 0.9 k/uL (1.0-4.8); Lymphocytes % (A) 13 %; MCH 29.4 pg (25.0-35.0); MCV 92.1 fL (80.0-100.0); Mean Platelet Volume 8.3; Monocytes # (A) 0.3 k/uL (0-1.0); Monocytes % (A) 5 %; Neutrophils # (A) 5.1 k/uL (1.3-7.7); Neutrophils % (A) 78 %; Platelet Count 215 k/uL (150-450); RBC 3.86 m/uL (3.80-5.40); RDW 15.2 % (11.5-15.5); WBC 6.6 k/uL (3.8-10.6)
[2019-06-01] MEDS: APIXABAN 5 MG TAB PO SCH ×2 (07:56→19:40)
[2019-06-01] MEDS: PANTOPRAZOLE 40 MG TABLET PO SCH (07:56)
[2019-06-01] MEDS: ATORVASTATIN 20 MG TAB PO SCH (07:56)
[2019-06-01 08:01] LABS: ALT 32 U/L (9-52); AST 36 U/L (14-36); African American GFR (CKD) >90 (>60 ml/min/1.73 sqM); Albumin 2.4 g/dL (3.5-5.0); Alkaline Phosphatase 85 U/L (38-126); Anion Gap 5 mmol/L; Blood Urea Nitrogen 11 mg/dL (7-17); Carbon Dioxide 26 mmol/L (22-30); Chloride 108 mmol/L (98-107); Glucose 87 mg/dL (74-99); Potassium 3.5 mmol/L (3.5-5.1); Sodium 139 mmol/L (137-145); Total Bilirubin 0.8 mg/dL (0.2-1.3); Total Protein 4.7 g/dL (6.3-8.2)
[2019-06-01] MEDS ORDERED: METOPROLOL SUCCINATE (ER) 25 MG TAB.ER.24H PO SCH (09:00)
--- NOTE | 2019-06-01 09:40 | PN ---
PROGRESS NOTE Mrs. Cobb is an 79-year-old female with history of atrial fibrillation, history of coronary artery disease who presented with gangrenous gallbladder, underwent cholecystectomy. She is complaining of mild abdominal discomfort. Otherwise, she is in atrial fibrillation with controlled ventricular response. She is denying any chest pain. No dizziness. No palpitation. She denies any vomiting. She continues to be on Lipitor 20 mg daily, IV Cardizem. She was started on Eliquis 5 mg twice a day. She is on metoprolol succinate 25 mg daily. PHYSICAL EXAMINATION: Blood pressure 130/70 with the heart rate in the 90s. LUNGS: Clear. HEART: Irregular, irregular. S1, S2. No S3. No rub. ABDOMEN: Soft, mild tenderness. Positive bowel sounds. No organomegaly. EXTREMITIES: No edema. Intact distal pulses. LAB DATA: Lab data revealed BUN and creatinine 11 and 0.7, potassium 3.5, hemoglobin of 11.4. IMPRESSION: 1. Status post cholecystectomy for gangrenous gallbladder. 2. Atrial fibrillation, anticoagulated and rate control. 3. History of coronary artery disease. RECOMMENDATION: I will stop the IV Cardizem. I will increase the dose of her beta eduardo. The patient has a moderate severe mitral regurgitation and needs to be followed once she is stabilized. MMODL / IJN: [id number] /
[2019-06-01] MEDS ORDERED: DOCUSATE 100 MG CAP PO PRN (10:44)
[2019-06-01] MEDS ORDERED: METOPROLOL SUCCINATE (ER) 50 MG TAB.ER.24H PO ONE (11:11)
[2019-06-01] MEDS: POTASSIUM CHLORIDE ER 20 MEQ TAB.ER PO SCH ×2 (11:18→12:55)
[2019-06-01] MEDS: SODIUM CHLORIDE 0.9% 1,000 ML IV SCH ×2 (11:18→23:08)
--- NOTE | 2019-06-01 14:16 | P.PN ---
Subjective Progress Note Date: 06/01/19 Principal diagnosis: Acute cholecystitis Patient was having increased pain yesterday. Better again this morning. TERE draining serous. Liver enzymes normal. White blood cell count 6.6. Tolerating full liquids. Objective - Vital Signs Vital signs: Vital Signs Temp 98.5 F 06/01/19 08:00 Pulse 87 06/01/19 12:00 Resp 16 06/01/19 12:00 BP 120/69 06/01/19 12:00 Pulse Ox 93 L 06/01/19 12:00 Intake & Output 05/31/19 06/01/19 06/01/19 18:59 06:59 18:59 Intake Total 1062 125 Output Total 550 5 Balance 1062 -425 -5 Weight 74.5 kg Intake: Intake, IV Titration 800 125 Amount ACETAMINOPHEN IV (For NPO 100 ) 1,000 mg In Empty Bag 1 bag @ 400 mls/hr IVPB Q6H [facility] Rx#:[id number] Diltiazem 125 mg In 125 Sodium Chloride 0.9% 100 ml @ 5 MG/HR 5 mls/hr IV .Q24H [facility] Rx#:[id number] Piperacillin-Tazobactam 3 100 .375 gm In Sodium Chloride 0.9% 100 ml @ 25 mls/hr IVPB Q8H [facility] Rx#: [id number] Sodium Chloride 0.9% 1, 600 000 ml @ 75 mls/hr IV . [id number] [facility] Rx#:[id number] Oral 262 Output: Drainage 50 5 Right Abdomen 50 5 Urine 500 Other: Voiding Method Bedpan Bedpan # Voids 1 200 - Exam Abdomen: Soft, nondistended, dressing clean and dry - Labs CBC & Chem 7: 06/01/19 06:21 06/01/19 06:21 Labs: Abnormal Lab Results - Last 24 Hours (Table) 06/01/19 06/01/19 Range/Units 06:21 06:21 Lymphocytes # 0.9 L (1.0-4.8) k/uL Chloride 108 H (98-107) mmol/L Calcium 8.0 L (8.4-10.2) mg/dL Total Protein 4.7 L (6.3-8.2) g/dL Albumin 2.4 L (3.5-5.0) g/dL Assessment and Plan (1) Acute cholecystitis Narrative/Plan: Will increase diet. And Toradol for pain control. Ambulate. Current Visit: Yes Status: Acute Code(s): K81.0 - ACUTE CHOLECYSTITIS SNOMED Code(s): 47392636
[2019-06-01] MEDS: MORPHINE SULFATE 2 MG/ML SYRINGE IVP PRN (15:42)
[2019-06-01] MEDS: KETOROLAC 30 MG/ML 1 ML VIAL IVP SCH ×2 (17:24→23:09)
--- NOTE | 2019-06-01 22:10 | P.PN ---
Subjective Progress Note Date: 05/31/19 Principal diagnosis: Acute cholecystitis Patient is a 79-year-old female with known history of coronary artery disease with stent placement, chronic atrial fibrillation, COPD, history of gallstones removed with biliary stent placement at [facility] and history of basil ar cell carcinoma was initially presented to [facility] with complaints of nausea and vomiting and abdominal discomfort 2 days prior to admission. Abdominal pain is 3 out of 10. She was unable to get out of bed and take her medications. Her son did come to check on her and she was found covered in her own urine. EMS was called and brought the patient into the [place] ED. Patient has a history of A. fib and she was found to have a rapid ventricular rate in the 170s. She was also mildly hypotensive. She is supposed to be on eliquis and metoprolol for her A. fib however has not taken her medications in [address] of abdomen pelvis due to right upper quadrant discomfort and was found have possible acute cholecystitis. Patient had leukocytosis of 15,000 and bilirubin 1.8. Patient was given a dose of ceftriaxone and transferred to [facility] for further evaluation. Patient was also having troponin elevation up to 0.7. Otherwise patient denied any dysuria or hematuria. No complaints of chest pain or shortness of breath. No headache or dizziness or lightheadedness. Chest x-ray showed no acute cardio pulmonary process. EKG showed atrial fibrillation with a rapid ventricular rate Troponin 0.522 and 0.216 2-D echocardiogram showed normal ejection fraction. Ultrasound of the abdomen showed distended gallbladder with mildly prominent w all measuring 4 mL. Possible gallbladder sludge. Sonographic Plata sign is positive. Prominent common bile duct measuring up to 9mm. HIDA scan may be considered for further evaluation. Bilirubin level is 1.8, potassium 3.4 05 30 2019 Patient underwent cholecystectomy by Dr. Reed corcoran. Currently abdominal discomfort and soreness. No nausea vomiting. No fever no chills. Echocardiogram showed normal ejection fraction at 50-55% with no wall motion abnormalities noted. Mild aortic valve sclerosis. Moderate to severe mitral regurgitation and mild tricuspid regurgitation. No complains of chest pain or shortness of breath. Cardiology is following. 05/31/2019 Patient denied any complaints of chest pain or shortness of breath. Right upper quadrant soreness is improved. Bilirubin level is 1.2. TERE drain with serosanguineous fluid. Patient was started on clear liquid diet. No fever no chills. Continued on IV antibiotics. Gen. surgery is following. Current medications reviewed. Objective - Vital Signs Vital signs: Vital Signs Temp 97.7 F 05/31/19 08:00 Pulse 84 05/31/19 08:00 Resp 16 05/31/19 08:00 BP 96/53 05/31/19 08:00 Pulse Ox 97 05/31/19 08:00 Intake & Output 05/30/19 05/31/19 05/31/19 18:59 06:59 18:59 Intake Total 1770 110.667 18 Output Total 750 200 Balance 1020 -89.333 18 Weight 75 kg Intake: IV 1750 Intake, IV Titration 110.667 Amount Diltiazem 125 mg In 110.667 Sodium Chloride 0.9% 100 ml @ 5 MG/HR 5 mls/hr IV .Q24H [facility] Rx#:[id number] Oral 20 18 Output: Urine 700 200 Estimated Blood Loss 50 Other: Voiding Method Bedpan # Voids 2 1 - Exam PHYSICAL EXAMINATION: Patient is lying in the bed comfortably, no acute distress, awake alert and oriented.. HEENT: Normocephalic. Neck is supple. Pupils reactive. Nostrils clear. Oral cavity is moist. Ears reveal no drainage. Neck reveals no JVD, carotid bruits, or thyromegaly. CHEST EXAMINATION: Trachea is central. Symmetrical expansion. Lung thomas clear to auscultation and percussion. CARDIAC: Normal S1, S2 with no gallops. No murmurs . Irregularly irregular rhythm. ABDOMEN: Soft. Mild right upper quadrant tenderness. No guarding no rigidity Bowel sounds normal. No organomegaly. No abdominal bruits. Extremities: reveal no edema. No clubbing or cyanosis Neurologically awake, alert, oriented x3 with well-coordinated movements. No focal deficits noted Skin: No rash or skin lesions. Psychiatric: Coperative. Nonsuicidal Musculoskeletal: No joint swelling or deformity. Normal range of motion. - Labs CBC & Chem 7: 06/01/19 06:21 06/01/19 06:21 Labs: Abnormal Lab Results - Last 24 Hours (Table) 05/31/19 Range/Units 05:42 Chloride 108 H (98-107) mmol/L Carbon Dioxide 20 L (22-30) mmol/L Calcium 8.1 L (8.4-10.2) mg/dL Total Protein 4.6 L (6.3-8.2) g/dL Albumin 2.3 L (3.5-5.0) g/dL Assessment and Plan Assessment: Acute cholecystitis. Status post open cholecystectomy. Right upper quadrant discomfort along with nausea and vomiting secondary to above Persistent atrial fibrillation with rapid regular rate. Elevated troponin level likely due to demand mismatch. Non-ST elevated HI cannot be excluded. Acute urinary tract infection Sepsis secondary to UTI and acute cholecystitis. Coronary artery disease with history of stent placement History of biliary stent placement at [facility] due to gallstones. COPD stable History of [place] Previous history of smoking Hypertension Hyperlipidemia DVT prophylaxis patient is already on heparin drip Plan: Patient will be continued on Cardizem drip for rate control. Continue with heparin drip and Eliquis is on hold due to surgery. will start back on Eliquis once patient is tolerating oral diet. Patient was started back on metoprolol. On Cardizem drip. Continue with antibiotics in the form of Zosyn. Follow-up urine culture reports. Patient is status post cholecystectomy. Further recommendations based on the clinical course. Prognosis is guarded. Time with Patient: Greater than 30
--- NOTE | 2019-06-01 22:12 | P.PN ---
Subjective Progress Note Date: 06/01/19 Principal diagnosis: Acute cholecystitis Patient is a 79-year-old female with known history of coronary artery disease with stent placement, chronic atrial fibrillation, COPD, history of gallstones removed with biliary stent placement at [facility] and history of basil ar cell carcinoma was initially presented to [facility] with complaints of nausea and vomiting and abdominal discomfort 2 days prior to admission. Abdominal pain is 3 out of 10. She was unable to get out of bed and take her medications. Her son did come to check on her and she was found covered in her own urine. EMS was called and brought the patient into the [place] ED. Patient has a history of A. fib and she was found to have a rapid ventricular rate in the 170s. She was also mildly hypotensive. She is supposed to be on eliquis and metoprolol for her A. fib however has not taken her medications in [address] of abdomen pelvis due to right upper quadrant discomfort and was found have possible acute cholecystitis. Patient had leukocytosis of 15,000 and bilirubin 1.8. Patient was given a dose of ceftriaxone and transferred to [facility] for further evaluation. Patient was also having troponin elevation up to 0.7. Otherwise patient denied any dysuria or hematuria. No complaints of chest pain or shortness of breath. No headache or dizziness or lightheadedness. Chest x-ray showed no acute cardio pulmonary process. EKG showed atrial fibrillation with a rapid ventricular rate Troponin 0.522 and 0.216 2-D echocardiogram showed normal ejection fraction. Ultrasound of the abdomen showed distended gallbladder with mildly prominent w all measuring 4 mL. Possible gallbladder sludge. Sonographic Plata sign is positive. Prominent common bile duct measuring up to 9mm. HIDA scan may be considered for further evaluation. Bilirubin level is 1.8, potassium 3.4 05 30 2019 Patient underwent cholecystectomy by Dr. Reed corcoran. Currently abdominal discomfort and soreness. No nausea vomiting. No fever no chills. Echocardiogram showed normal ejection fraction at 50-55% with no wall motion abnormalities noted. Mild aortic valve sclerosis. Moderate to severe mitral regurgitation and mild tricuspid regurgitation. No complains of chest pain or shortness of breath. Cardiology is following. 05/31/2019 Patient denied any complaints of chest pain or shortness of breath. Right upper quadrant soreness is improved. Bilirubin level is 1.2. TERE drain with serosanguineous fluid. Patient was started on clear liquid diet. No fever no chills. Continued on IV antibiotics. Gen. surgery is following. 06/01/2019 Patient denied any complaints of chest pain or shortness of breath. No fever no chills. Abdominal pain is improved. Tolerating clear liquids and is being advanced. General surgery is following. TERE drain is in place. No other acute overnight issues. Current medications reviewed. Objective - Vital Signs Vital signs: Vital Signs Temp 98.4 F 06/01/19 19:43 Pulse 85 06/01/19 20:00 Resp 16 06/01/19 20:00 BP 119/63 06/01/19 19:43 Pulse Ox 97 06/01/19 19:43 Intake & Output 06/01/19 06/01/19 06/02/19 06:59 18:59 06:59 Intake Total 125 240 Output Total 550 5 200 Balance -425 235 -200 Weight 74.5 kg Intake: Intake, IV Titration 125 Amount Diltiazem 125 mg In 125 Sodium Chloride 0.9% 100 ml @ 5 MG/HR 5 mls/hr IV .Q24H [facility] Rx#:[id number] Oral 240 Output: Drainage 50 5 Right Abdomen 50 5 Urine 500 200 Other: Voiding Method Bedpan Bedpan Bedpan # Voids 1 2 - Exam PHYSICAL EXAMINATION: Patient is lying in the bed comfortably, no acute distress, awake alert and oriented.. HEENT: Normocephalic. Neck is supple. Pupils reactive. Nostrils clear. Oral cavity is moist. Ears reveal no drainage. Neck reveals no JVD, carotid bruits, or thyromegaly. CHEST EXAMINATION: Trachea is central. Symmetrical expansion. Lung thomas clear to auscultation and percussion. CARDIAC: Normal S1, S2 with no gallops. No murmurs . Irregularly irregular rhythm. ABDOMEN: Soft. Mild right upper quadrant tenderness. No guarding no rigidity Bowel sounds normal. No organomegaly. No abdominal bruits. Extremities: reveal no edema. No clubbing or cyanosis Neurologically awake, alert, oriented x3 with well-coordinated movements. No focal deficits noted Skin: No rash or skin lesions. Psychiatric: Coperative. Nonsuicidal Musculoskeletal: No joint swelling or deformity. Normal range of motion. - Labs CBC & Chem 7: 06/01/19 06:21 08/26/19 06:21 Labs: Abnormal Lab Results - Last 24 Hours (Table) 06/01/19 06/01/19 Range/Units 06:21 06:21 Lymphocytes # 0.9 L (1.0-4.8) k/uL Chloride 108 H (98-107) mmol/L Calcium 8.0 L (8.4-10.2) mg/dL Total Protein 4.7 L (6.3-8.2) g/dL Albumin 2.4 L (3.5-5.0) g/dL Assessment and Plan Assessment: Acute cholecystitis. Status post open cholecystectomy. Right upper quadrant discomfort along with nausea and vomiting secondary to above. Improved now. Persistent atrial fibrillation with rapid regular rate. Elevated troponin level likely due to demand mismatch. Non-ST elevated CA cannot be excluded. Acute urinary tract infection Sepsis secondary to UTI and acute cholecystitis. Coronary artery disease with history of stent placement History of biliary stent placement at [facility] due to gallstones. COPD stable History of CA Previous history of smoking Hypertension Hyperlipidemia DVT prophylaxis patient is already on heparin drip Plan: Patient was continued on Cardizem drip for rate control. Continued with heparin drip and Eliquis was restarted.. Patient was started back on metoprolol. . Continue with antibiotics in the form of Zosyn. Follow-up urine culture reports. Patient is status post cholecystectomy. Further recommendations based on the clinical course. Prognosis is guarded. Time with Patient: Greater than 30
[2019-06-02] MEDS: HYDROcodone/APAP 5-325MG 1 EACH TAB PO PRN ×3 (03:51→14:59)
[2019-06-02] MEDS: PIPERACILLIN-TAZOBACTAM 3.375 GM in SODIUM CHLORIDE 0.9% 100 ML IVPB SCH ×3 (06:15→23:01)
[2019-06-02] MEDS: KETOROLAC 30 MG/ML 1 ML VIAL IVP SCH ×4 (06:15→23:01)
[2019-06-02 06:58] LABS: Basophils % (A) 1 %; Eosinophils # (A) 0.2 k/uL (0-0.7); Eosinophils % (A) 5 %; HCT 35.4 % (34.0-46.0); HGB 11.1 gm/dL (11.4-16.0); Hypochromasia Slight; Lymphocytes % (A) 21 %; MCH 29.6 pg (25.0-35.0); MCHC 31.5 g/dL (31.0-37.0); Mean Platelet Volume 7.5; Monocytes # (A) 0.3 k/uL (0-1.0); Monocytes % (A) 7 %; Neutrophils % (A) 66 %; Platelet Count 224 k/uL (150-450); RBC 3.77 m/uL (3.80-5.40); RDW 14.5 % (11.5-15.5); WBC 4.6 k/uL (3.8-10.6)
[2019-06-02] MEDS: METOPROLOL SUCCINATE (ER) 50 MG TAB.ER.24H PO SCH (09:08)
[2019-06-02] MEDS: PANTOPRAZOLE 40 MG TABLET PO SCH (09:08)
[2019-06-02] MEDS: APIXABAN 5 MG TAB PO SCH ×2 (09:09→20:01)
[2019-06-02] MEDS: ATORVASTATIN 20 MG TAB PO SCH (09:09)
[2019-06-02] MEDS: SODIUM CHLORIDE 0.9% 1,000 ML IV SCH (13:03)
--- NOTE | 2019-06-02 13:09 | PN ---
PROGRESS NOTE Mrs. Cobb is an 79-year-old female with known history of chronic persistent atrial fibrillation, history of coronary artery disease who underwent cholecystectomy for gangrenous gallbladder. She is doing quite well this morning. Her breathing is stable. She is denying any chest pain. No dizziness. She denies any nausea. She has been ambulating. Able to tolerate oral intake and she continues to be on Eliquis 5 mg twice a day, Lipitor 20 mg daily, metoprolol succinate 50 mg daily. PHYSICAL EXAMINATION: Blood pressure 132/80 with a heart rate in the 70s. LUNGS: Clear. HEART: Irregular regular, S1, S2. No S3 with a systolic murmur. ABDOMEN: Soft, positive bowel sounds, no organomegaly. EXTREMITIES: No edema. LAB DATA: Revealed a hemoglobin of 11.1. IMPRESSION: 1. Status post cholecystectomy for gangrenous gallbladder. 2. Atrial fibrillation, anticoagulated with controlled ventricular response. 3. History of coronary artery disease. 4. Hyperlipidemia. RECOMMENDATION: From the cardiac standpoint, I would expect she should be able to be discharged home soon. She will follow up with Dr. Fuller in [place] for convenience. Depending on her progress, further recommendation will be made. MMODL / IJN: [id number] /
--- NOTE | 2019-06-02 14:03 | CDI ---
Documentation Clarification Form Date: 06/02/2019 1:49:26 PM From: Irena AguilarFLORIDA pires, CCDS Admit Date: 05/29/2019 12:34:00 AM Patient Name: Marium Cobb Visit Number: [id number] Discharge Date: ATTENTION: The Clinical Documentation Specialists (CDI) and [facility] Coding Staff appreciate your assistance in clarifying documentation. Please respond to the clarification below the line at the bottom and electronically sign. The CDI & [facility] Coding staff will review the response and follow-up if needed. Please note: Queries are made part of the Legal Health Record. If you have any questions, please contact the author of this message via ITS. Dr. Darius Mccann: Per the History & Physical & subsequent progress note: "Elevated troponin level likely due to demand mismatch. Non-ST elevated TX cannot be excluded." Per the Cardiology consult & subsequent progress note: "elevated troponin, cannot definitively rule out obstructive CAD at this time, could be a non-ST elevation TX versus type II TX due to oxygen supply demand mismatch." Patient History/Risk Factors: CAD w/stent, Biliary stent due to gallstones, COPD, TX, Former smoker, Hypertension, Hyperlipidemia. Clinical Indicators: Presented with RUQ discomfort along with nausea & vomiting secondary to acute cholecystitis. Diagnosed with sepsis secondary to acute cholecystitis & UTI & NSTEMI not ruled out. Troponin: 0.522^^, 0.360^^, 0.216^^ EKG Results: 05/29: R 127 Atrial fibrillation w/RVR. #2: R 94 Atrial fibrillation. Treatment: IV Ms, IV Cardizem drip, IV Zosyn, IV Heparin drip, IV fluid 75. Laparoscopic turned open cholecystectomy with repair of incisional hernia. In order to capture the severity of condition and necessary documentation specificity, please clarify: NSTEMI Type II myocardial infarction Myocardial infarction ruled out Other type of myocardial infarction [id number] Unable to determine Other Condition, please specify (Last Revision: July 2017) MTDD
--- NOTE | 2019-06-02 17:45 | P.PN ---
Subjective Progress Note Date: 06/02/19 Principal diagnosis: Acute cholecystitis Patient doing well today. She says her pain is improved. White blood cell count 4.6. TERE drain is scant serous. tolerating diet. Objective - Vital Signs Vital signs: Vital Signs Temp 98.1 F 06/02/19 15:50 Pulse 112 H 06/02/19 16:00 Resp 15 06/02/19 15:50 BP 110/77 06/02/19 15:50 Pulse Ox 92 L 06/02/19 15:50 Intake & Output 06/01/19 06/02/19 06/02/19 18:59 06:59 18:59 Intake Total 240 480 Output Total 5 520 45 Balance 235 -520 435 Weight 82 kg Intake: Oral 240 480 Output: Drainage 5 20 45 Right Abdomen 5 20 45 Urine 500 Other: Voiding Method Bedpan Bedpan Bedpan # Voids 2 2 2 - Exam Abdomen: Soft, nondistended, incision clean dry - Labs CBC & Chem 7: 06/02/19 06:20 06/01/19 06:21 Labs: Abnormal Lab Results - Last 24 Hours (Table) 06/02/19 Range/Units 06:20 RBC 3.77 L (3.80-5.40) m/uL Hgb 11.1 L (11.4-16.0) gm/dL Assessment and Plan (1) Acute cholecystitis Narrative/Plan: Continue diet as tolerated. Ambulate. Possible discharge tomorrow. Plan removing drain prior to discharge. Current Visit: Yes Status: Acute Code(s): K81.0 - ACUTE CHOLECYSTITIS SNOMED Code(s): 70100225
--- NOTE | 2019-06-02 23:25 | P.PN ---
Subjective Progress Note Date: 06/02/19 Principal diagnosis: Acute cholecystitis Patient is a 79-year-old female with known history of coronary artery disease with stent placement, chronic atrial fibrillation, COPD, history of gallstones removed with biliary stent placement at [facility] and history of basil ar cell carcinoma was initially presented to [facility] with complaints of nausea and vomiting and abdominal discomfort 2 days prior to admission. Abdominal pain is 3 out of 10. She was unable to get out of bed and take her medications. Her son did come to check on her and she was found covered in her own urine. EMS was called and brought the patient into the [place] ED. Patient has a history of A. fib and she was found to have a rapid ventricular rate in the 170s. She was also mildly hypotensive. She is supposed to be on eliquis and metoprolol for her A. fib however has not taken her medications in [address] of abdomen pelvis due to right upper quadrant discomfort and was found have possible acute cholecystitis. Patient had leukocytosis of 15,000 and bilirubin 1.8. Patient was given a dose of ceftriaxone and transferred to [facility] for further evaluation. Patient was also having troponin elevation up to 0.7. Otherwise patient denied any dysuria or hematuria. No complaints of chest pain or shortness of breath. No headache or dizziness or lightheadedness. Chest x-ray showed no acute cardio pulmonary process. EKG showed atrial fibrillation with a rapid ventricular rate Troponin 0.522 and 0.216 2-D echocardiogram showed normal ejection fraction. Ultrasound of the abdomen showed distended gallbladder with mildly prominent w all measuring 4 mL. Possible gallbladder sludge. Sonographic Plata sign is positive. Prominent common bile duct measuring up to 9mm. HIDA scan may be considered for further evaluation. Bilirubin level is 1.8, potassium 3.4 05 30 2019 Patient underwent cholecystectomy by Dr. Reed corcoran. Currently abdominal discomfort and soreness. No nausea vomiting. No fever no chills. Echocardiogram showed normal ejection fraction at 50-55% with no wall motion abnormalities noted. Mild aortic valve sclerosis. Moderate to severe mitral regurgitation and mild tricuspid regurgitation. No complains of chest pain or shortness of breath. Cardiology is following. 05/31/2019 Patient denied any complaints of chest pain or shortness of breath. Right upper quadrant soreness is improved. Bilirubin level is 1.2. TERE drain with serosanguineous fluid. Patient was started on clear liquid diet. No fever no chills. Continued on IV antibiotics. Gen. surgery is following. 06/01/2019 Patient denied any complaints of chest pain or shortness of breath. No fever no chills. Abdominal pain is improved. Tolerating clear liquids and is being advanced. General surgery is following. TERE drain is in place. No other acute overnight issues. 06/02/2019 Patient denied any complaints of chest pain or short of breath. Abdominal pain is improving. Otherwise patient did have small bowel movement and is passing flatness. Able to sit in the chair comfortably now treatment. Patient was started on oral diet and is tolerating well. Otherwise patient has generalized weakness and is requiring assistance with examination. Continued on PT OT and possible transfer to rehab tomorrow. Patient is hesitant to go to rehab. Current medications reviewed. Objective - Vital Signs Vital signs: Vital Signs Temp 97.6 F 06/02/19 20:00 Pulse 87 06/02/19 20:00 Resp 15 06/02/19 20:00 BP 123/61 06/02/19 20:00 Pulse Ox 98 06/02/19 20:00 Intake & Output 06/02/19 06/02/19 06/03/19 06:59 18:59 06:59 Intake Total 840 120 Output Total 520 45 Balance -520 795 120 Weight 82 kg Intake: Oral 840 120 Output: Drainage 20 45 Right Abdomen 20 45 Urine 500 Other: Voiding Method Bedpan Bedpan # Voids 2 2 - Exam PHYSICAL EXAMINATION: Patient is lying in the bed comfortably, no acute distress, awake alert and oriented.. HEENT: Normocephalic. Neck is supple. Pupils reactive. Nostrils clear. Oral cavity is moist. Ears reveal no drainage. Neck reveals no JVD, carotid bruits, or thyromegaly. CHEST EXAMINATION: Trachea is central. Symmetrical expansion. Lung thomas clear to auscultation and percussion. CARDIAC: Normal S1, S2 with no gallops. No murmurs . Irregularly irregular rhythm. ABDOMEN: Soft. Mild right upper quadrant tenderness. No guarding no rigidity Bowel sounds normal. No organomegaly. No abdominal bruits. Extremities: reveal no edema. No clubbing or cyanosis Neurologically awake, alert, oriented x3 with well-coordinated movements. No focal deficits noted Skin: No rash or skin lesions. Psychiatric: Coperative. Nonsuicidal Musculoskeletal: No joint swelling or deformity. Normal range of motion. - Labs CBC & Chem 7: 06/02/19 06:20 06/01/19 06:21 Labs: Abnormal Lab Results - Last 24 Hours (Table) 06/02/19 Range/Units 06:20 RBC 3.77 L (3.80-5.40) m/uL Hgb 11.1 L (11.4-16.0) gm/dL Assessment and Plan Assessment: Acute cholecystitis. Status post open cholecystectomy. Right upper quadrant discomfort along with nausea and vomiting secondary to above. Improved now. Persistent atrial fibrillation with rapid regular rate. Elevated troponin level likely due to demand mismatch. Non-ST elevated TN cannot be excluded. Acute urinary tract infection Sepsis secondary to UTI and acute cholecystitis. Coronary artery disease with history of stent placement History of biliary stent placement at [facility] due to gallstones. COPD stable History of TN Previous history of smoking Hypertension Hyperlipidemia DVT prophylaxis patient is already on heparin drip Plan: Patient was continued on Cardizem drip for rate control. Continued with heparin drip and Eliquis was restarted.. Patient was started back on metoprolol. . Continue with antibiotics in the form of Zosyn. Zosyn will be continued for 7 days. Stop date 06/03/2019. Patient is status post cholecystectomy. Further recommendations based on the clinical course. Prognosis is guarded. Time with Patient: Greater than 30
[2019-06-03] MEDS ORDERED: HYDROcodone/APAP 5-325MG 1 EACH TAB ONE (04:00)
[2019-06-03] MEDS: SODIUM CHLORIDE 0.9% 1,000 ML IV SCH ×2 (05:41→15:13)
[2019-06-03] MEDS: KETOROLAC 30 MG/ML 1 ML VIAL IVP SCH ×2 (06:16→12:14)
[2019-06-03] MEDS: PIPERACILLIN-TAZOBACTAM 3.375 GM in SODIUM CHLORIDE 0.9% 100 ML IVPB SCH ×2 (06:16→15:16)
[2019-06-03 07:32] LABS: Basophils % (A) 0 %; Eosinophils # (A) 0.3 k/uL (0-0.7); Eosinophils % (A) 4 %; HCT 34.3 % (34.0-46.0); Lymphocytes % (A) 14 %; MCH 29.2 pg (25.0-35.0); MCHC 31.9 g/dL (31.0-37.0); MCV 91.4 fL (80.0-100.0); Mean Platelet Volume 7.5; Monocytes # (A) 0.3 k/uL (0-1.0); Monocytes % (A) 4 %; Neutrophils # (A) 5.5 k/uL (1.3-7.7); Neutrophils % (A) 77 %; Platelet Count 266 k/uL (150-450); RBC 3.76 m/uL (3.80-5.40); RDW 14.7 % (11.5-15.5); WBC 7.2 k/uL (3.8-10.6)
[2019-06-03 07:50] LABS: Calcium 8.2 mg/dL (8.4-10.2); Potassium 3.5 mmol/L (3.5-5.1)
[2019-06-03] MEDS: HYDROcodone/APAP 5-325MG 1 EACH TAB PO PRN (09:12)
[2019-06-03] MEDS: ATORVASTATIN 20 MG TAB PO SCH (09:12)
[2019-06-03] MEDS: APIXABAN 5 MG TAB PO SCH (09:13)
[2019-06-03] MEDS: PANTOPRAZOLE 40 MG TABLET PO SCH (09:13)
[2019-06-03] MEDS: METOPROLOL SUCCINATE (ER) 50 MG TAB.ER.24H PO SCH (09:13)
--- NOTE | 2019-06-03 12:29 | P.PN ---
Subjective Progress Note Date: 06/03/19 Principal diagnosis: Acute cholecystitis Patient doing well today. Denies pain. TERE drain serosanguineous. Tolerating diet. Objective - Vital Signs Vital signs: Vital Signs Temp 98.2 F 06/03/19 07:56 Pulse 90 06/03/19 08:00 Resp 14 06/03/19 07:56 BP 132/80 06/03/19 07:56 Pulse Ox 98 06/03/19 07:56 Intake & Output 06/02/19 06/03/19 06/03/19 18:59 06:59 18:59 Intake Total 840 120 Output Total 45 270 100 Balance 795 -150 -100 Weight 74.8 kg Intake: Oral 840 120 Output: Drainage 45 70 100 Right Abdomen 45 70 100 Urine 200 Other: Voiding Method Bedpan Bedpan # Voids 2 2 - Exam Abdomen: Soft, nondistended, incision clean and dry - Labs CBC & Chem 7: 06/03/19 07:14 06/03/19 07:14 Labs: Abnormal Lab Results - Last 24 Hours (Table) 06/03/19 06/03/19 Range/Units 07:14 07:14 RBC 3.76 L (3.80-5.40) m/uL Hgb 11.0 L (11.4-16.0) gm/dL Chloride 113 H (98-107) mmol/L Carbon Dioxide 21 L (22-30) mmol/L Calcium 8.2 L (8.4-10.2) mg/dL Assessment and Plan (1) Acute cholecystitis Narrative/Plan: We'll remove TERE drain today. Change dressing. Home per primary service. Current Visit: Yes Status: Acute Code(s): K81.0 - ACUTE CHOLECYSTITIS SNOMED Code(s): 02639967
--- NOTE | 2019-06-03 13:19 | PN ---
PROGRESS NOTE Mrs. Cobb is an 79-year-old female with history of coronary artery disease, atrial fibrillation, who presented with gangrenous gallbladder, underwent surgical intervention. She is feeling well today. Her appetite is stable. She is ambulating, denying any chest pain. No dizziness. No palpitation. She denies any nausea. She continues to be on Eliquis 5 mg twice a day, Lipitor 20 mg daily, metoprolol succinate 50 mg daily. PHYSICAL EXAMINATION: Blood pressure 131/70 with the heart rate in the 80s. LUNGS: Clear. HEART: Irregular, irregular. S1, S2. No S3. No rub. ABDOMEN: Soft. Positive bowel sounds. No organomegaly. EXTREMITIES: No edema. LAB DATA: Lab data revealed hemoglobin of 11, BUN and creatinine of 11 and 0.77, potassium 3.5. IMPRESSION: 1. Status post cholecystectomy with gangrenous gallbladder. 2. History of coronary artery disease, stable. 3. Atrial fibrillation, chronic and persistent with controlled ventricular response, anticoagulated. RECOMMENDATION: Patient should be able to be discharged home today. She will follow up with Dr. Fuller in [place]. In the meantime, she will continue on the present regimen. MMODL / IJN: [id number] /
[2019-06-03 15:54] VITALS: BP 150/75; PULSE 80; RESP 16; TEMP 98
== END 2019-06-03 16:07 | disposition home health service (06) | DRG 853 ==
LOC: EC 20:40 → 3SCARD 05-29 00:34
PROVIDERS: ADMIT Internal Medicine; ATTEND Internal Medicine
PROC: 0WQF0ZZ Repair Abdominal Wall, Open Approach (ICD-10-PCS; principal; 2019-05-30 08:00)
PROC: 0FT40ZZ Resection of Gallbladder, Open Approach (ICD-10-PCS; principal; 2019-05-30 08:00)
PROC: 0FJ44ZZ Inspection of Gallbladder, Percutaneous Endoscopic Approach (ICD-10-PCS; principal; 2019-05-30 08:00)
DX: A41.9 Sepsis, unspecified organism (principal); I21.4 Non-ST elevation (NSTEMI) myocardial infarction; N39.0 Urinary tract infection, site not specified; K81.0 Acute cholecystitis; I48.1 Persistent atrial fibrillation; K82.A1 Gangrene of gallbladder in cholecystitis; K43.2 Incisional hernia without obstruction or gangrene; I48.91 Unspecified atrial fibrillation; J44.9 Chronic obstructive pulmonary disease, unspecified; I25.10 Atherosclerotic heart disease of native coronary artery without angina pectoris; I95.9 Hypotension, unspecified; I10 Essential (primary) hypertension; E78.5 Hyperlipidemia, unspecified; I08.3 Combined rheumatic disorders of mitral, aortic and tricuspid valves; Z66 Do not resuscitate; I25.2 Old myocardial infarction; Z95.5 Presence of coronary angioplasty implant and graft; Z90.710 Acquired absence of both cervix and uterus; Z79.01 Long term (current) use of anticoagulants; Z79.899 Other long term (current) drug therapy; Z87.891 Personal history of nicotine dependence; Z85.828 Personal history of other malignant neoplasm of skin; Z90.49 Acquired absence of other specified parts of digestive tract; Z90.89 Acquired absence of other organs; Z82.0 Family history of epilepsy and other diseases of the nervous system
CPT/HCPCS: 36415; 71046; 76705; 80048; 80053; 83605; 84484; 85025; 85610; 85730; 88302; 88304; 93005; 93306; 96365; 96366; 96368; 96375; 96376; 99291